=== PATIENT | male | born 1965 | race Caucasian/White ===

== ENCOUNTER 2018-09-21 04:37 | Inpatient (IN) | payer MEDICAID, MEDICARE, SELFPAY ==
--- NOTE | 2018-09-21 04:57 | C.PDOC ---
History Of Present Illness Patient presents with ruq pain, constipation and some nausea and vomiting. Pt states his last bm was 10 days ago. No f/c. Decreased po intake. Dull, aching cramping discomfort, occasionally radiating to the back. Time Seen by Provider: 09/21/18 04:56 Chief Complaint (Nursing): Abdominal Pain History Per: Patient History/Exam Limitations: no limitations Onset/Duration Of Symptoms: Days (10) Current Symptoms Are (Timing): Still Present Context: Other Severity: Moderate Pain Scale Rating Of: 5 Location Of Pain/Discomfort: RUQ Radiation Of Pain To:: Back Quality Of Discomfort: Dull, Aching, Cramping Associated Symptoms: Nausea, Vomiting. denies: Fever, Chills Exacerbating Factors: Food Alleviating Factors: None Last Bowel Movement: Days Ago Recent travel outside of the [place]: No Additional History Per: Patient Past Medical History Reviewed: Historical Data, Nursing Documentation, Vital Signs Vital Signs: Last Vital Signs Temp 97.5 F L 09/21/18 04:44 Pulse 102 H 09/21/18 04:44 Resp 20 09/21/18 04:44 BP 144/68 09/21/18 04:44 Pulse Ox 96 09/21/18 04:44 - Medical History PMH: HTN, Hypercholesterolemia Surgical History: CABG, Coronary Stent Family History: States: No Known Family Hx - Social History Hx Alcohol Use: No Hx Substance Use: No - Immunization History Hx Tetanus Toxoid Vaccination: No Hx Influenza Vaccination: No Hx Pneumococcal Vaccination: No Review Of Systems Constitutional: Negative for: Fever, Chills Cardiovascular: Negative for: Chest Pain Respiratory: Negative for: Shortness of Breath Gastrointestinal: Positive for: Nausea, Vomiting, Abdominal Pain Genitourinary: Negative for: Dysuria Musculoskeletal: Negative for: Back Pain Skin: Negative for: Rash Neurological: Negative for: Weakness Psych: Negative for: Anxiety Physical Exam - Physical Exam Appears: Non-toxic, No Acute Distress Skin: Warm, Dry Oral Mucosa: Moist Chest: Symmetrical Cardiovascular: Rhythm Regular Respiratory: No Rales, No Rhonchi, No Wheezing Gastrointestinal/Abdominal: Bowel Sounds (tympanic to percussion), Soft, Tenderness (ruq), Distention, No Guarding, No Rebound Back: No CVA Tenderness Extremity: Normal ROM Extremity: Bilateral: Atraumatic Pulses: Left Dorsalis Pedis: Normal, Right Dorsalis Pedis: Normal Neurological/Psych: Oriented x3 Gait: Steady ED Course And Treatment - Laboratory Results Result Diagrams: 09/21/18 06:24 ECG: Interpreted By Me, Viewed By Me ECG Rhythm: Sinus Rhythm (97), R BBB, Nonspecific Changes (lahb) O2 Sat by Pulse Oximetry: 96 Pulse Ox Interpretation: Normal Disposition Counseled Patient/Family Regarding: Studies Performed, Diagnosis - Disposition Disposition Time: 07:00 Condition: FAIR Forms: [employer] ([place]aguan) - Clinical Impression Clinical Impression: Abdominal pain Physician Patient Turnover Patient Signed Over To: Allison Tomas Handoff Comments: pending labs, re-eval and disposition
[2018-09-21] MEDS ORDERED: Sodium Chloride 0.9% 1,000 ML IV ONE ×2 (04:59→08:43)
[2018-09-21 06:08] LABS: URINE BILIRUBIN NEGATIVE (NEGATIVE); URINE BLOOD NEGATIVE (NEGATIVE); URINE CLARITY Clear (Clear); URINE COLOR Yellow (YELLOW); URINE GLUCOSE (UA) NORMAL (Normal); URINE HYALINE CAST 0-2 /lpf (0-2); URINE LEUKOCYTE ESTERASE NEG Leu/uL (Negative); URINE PROTEIN 1+ mg/dL (NEGATIVE); URINE UROBILINOGEN NORMAL mg/dL (0.2-1.0)
[2018-09-21 06:29] LABS: BASO % 0.2 % (0.0-2.0); EOS # 0.1 K/uL (0.0-0.7); EOS % 0.6 % (0.0-4.0); HEMOGLOBIN 13.4 g/dL (12.0-18.0); LYMPH # 0.9 K/uL (1.0-4.3); LYMPH % 5.6 % (20.0-40.0); MEAN CORPUSCULAR HEMOGLOBIN 30.5 pg (27.0-31.0); MEAN CORPUSCULAR HGB CONC 34.3 g/dL (33.0-37.0); MEAN PLATELET VOLUME 8.1 fL (7.2-11.7); MONO # 1.5 K/uL (0.0-0.8); MONO % 9.3 % (0.0-10.0); NEUT # 13.7 K/uL (1.8-7.0); NEUT % 84.3 % (50.0-75.0); NRBC % 0.1 % (0.0-2.0); PLATELET COUNT 412 K/uL (130-400); RBC 4.38 Mil/uL (4.40-5.90); RED CELL DISTRIBUTION WIDTH 12.7 % (11.5-14.5); WHITE BLOOD COUNT 16.2 K/uL (4.8-10.8)
[2018-09-21] MEDS ORDERED: metroNIDAZOLE IV 500 mg/100 ml 500 MG/100 ML BAG ONE ×2 (06:55→13:48)
[2018-09-21 06:58] LABS: INR 1.2; PROTHROMBIN TIME 13.4 SECONDS (9.7-12.2)
[2018-09-21] MEDS: metroNIDAZOLE IV 500 mg/100 ml 500 MG/100 ML BAG IVPB SCH ×3 (07:07→23:01)
[2018-09-21 07:55] LABS: LYMPHOCYTE 7 % (20-40); MONOCYTE 6 % (0-10); NEUTROPHIL 87 % (50-75); PLATELET ESTIMATE SLIGHTLY INCREASED (NORMAL); TOTAL CELLS COUNTED 100
[2018-09-21 07:56] LABS: LARGE PLATELETS PRESENT
[2018-09-21 07:58] LABS: ALB/GLOB RATIO 1.4 (1.0-2.1); ALBUMIN 4.1 g/dL (3.5-5.0); ALT/SGPT 41 U/L (21-72); AST/SGOT 33 U/L (17-59); BLOOD UREA NITROGEN 13 mg/dL (9-20); CALCIUM 8.9 mg/dl (8.6-10.4); GFR NON-AFRICAN AMERICAN > 60; LIPASE 23 U/L (23-300)
[2018-09-21] MEDS ORDERED: Sodium Chloride 0.9% 1,000 ML ONE (09:30)
--- NOTE | 2018-09-21 11:44 | CT ---
PROCEDURE: CT Abdomen and Pelvis without Oral or IV contrast. HISTORY: abd pain COMPARISON: None available TECHNIQUE: Contiguous axial images of the abdomen and pelvis. No oral or IV contrast administered. Coronal and Sagittal reformats generated and reviewed. Radiation dose: Total exam DLP = 427.42 mGy-cm. This CT exam was performed using one or more of the following dose reduction techniques: Automated exposure control, adjustment of the mA and/or kV according to patient size, and/or use of iterative reconstruction technique. FINDINGS: There is limited evaluation of the solid organs without the administration of IV contrast. LOWER THORAX: Right greater than left lower lobe dependent consolidation. No visible pleural effusion or pneumothorax. Dense coronary artery calcifications. Median sternotomy wires. Distal esophageal wall thickening/hiatal hernia. LIVER: Unremarkable. GALLBLADDER AND BILE DUCTS: Gallbladder distension. Gallbladder wall thickening. Adjacent inflammatory changes. PANCREAS: Unremarkable unenhanced appearance. SPLEEN: Unremarkable unenhanced appearance. ADRENALS: Unremarkable unenhanced appearance. KIDNEYS AND URETERS: No hydronephrosis or obstructing renal calculus. BLADDER: Under distended urinary bladder appears thick walled. REPRODUCTIVE: Unremarkable. APPENDIX: The appendix appears within normal limits of caliber. No secondary signs of acute appendicitis. BOWEL: The stomach is nondistended. Lack of oral contrast limits evaluation for bowel pathology. The bowel loops appear within normal limits of caliber without evidence of intestinal obstruction. PERITONEUM: No significant free fluid. No definite free air. LYMPH NODES: No bulky lymphadenopathy identified. VASCULATURE: Dense atherosclerotic calcifications of the aorta and branches. No aortic aneurysm. BONES: No acute osseous abnormality is detected. OTHER FINDINGS: None. IMPRESSION: Gallbladder distension, gallbladder wall thickening, and adjacent inflammatory changes. Correlate clinically for acute cholecystitis. Calcified gallstones are not identified. Urinary bladder appears thick walled, under distended. Recommend correlation with urinalysis. Distal esophageal wall thickening/small hiatal hernia. Additional findings as above.
[2018-09-21] MEDS ORDERED: Cefepime 1 GM in Sodium Chloride 0.9% 50 ML IVPB ONE (13:17)
[2018-09-21] MEDS ORDERED: Cefepime IV 1 gm in Dextrose 1 GM/50 ML BAG IVPB SCH (13:30)
--- NOTE | 2018-09-21 13:30 | CP.PCM.CON ---
History of Present Illness - History of Present Illness History of Present Illness: Surgery Consult Note for Dr. Spencer. 53 M w/ PMhx of cardiac bypass, RLE vascular stents, DM, HTN, HLD, presents to ED for RUQ abdominal pain with radiation to R shoulder for the past 11 days. Patient states he has been having this pain constantly since Sep 10. Patient admits to X4, green/yellow bilious vomiting this morning. He states he has been having vomiting every day since the . Patient admits to worsening pain in the chest with deep inspiration. Patient also admits to having no bowel movement; however, he is able to pass gas. Patient has only been eating steamed vegetables due to the pain. Patient denies headaches, vision changes, fevers, chills, lower extremity pain. Patient report she was at [facility] on the for the same pain; however, was D/c'ed with just pain medicine that has not helped. PMD: Dr. Corrigan PMHx: cardiac bypass, RLE vascular stents, DM, HTN, HLD Meds: See EMR PSHx: Cardiac bypass, RLE vascular stents Allergies: Shrimp SHx: Denies smoking, ETOH, drug use. Review of Systems - Review of Systems All systems: reviewed and no additional remarkable complaints except - Constitutional Constitutional: As Per HPI Past Patient History - Infectious Disease Hx of Infectious Diseases: None - Past Social History Smoking Status: Never Smoked - CARDIAC Hx Hypercholesterolemia: Yes Hx Hypertension: Yes - ENDOCRINE/METABOLIC Hx Endocrine Disorders: Yes Hx Diabetes Mellitus Type 1: Yes - PSYCHIATRIC Hx Substance Use: No - SURGICAL HISTORY Hx Coronary Artery Bypass Graft: Yes Hx Coronary Stent: Yes - ANESTHESIA Hx Anesthesia: Yes Hx Anesthesia Reactions: No Meds Allergies/Adverse Reactions: Allergies Allergy/AdvReac Type Severity Reaction Status Date / Time shrimp Allergy Verified 09/21/18 04:49 - Medications Medications: Current Medications Metronidazole (Flagyl) 500 mg in 100 mls @ 100 mls/hr IVPB STAT [facility]; Protocol Last Admin: 09/21/18 07:07 Dose: 100 mls/hr Physical Exam - Constitutional Appears: Non-toxic - Head Exam Head Exam: NORMAL INSPECTION - Eye Exam Eye Exam: Normal appearance, PERRL Pupil Exam: NORMAL ACCOMODATION - ENT Exam ENT Exam: Mucous Membranes Moist - Respiratory Exam Respiratory Exam: Clear to Auscultation Bilateral, NORMAL BREATHING PATTERN. absent: Rales, Rhonchi, Wheezes - Cardiovascular Exam Cardiovascular Exam: +S1, +S2, Systolic Murmur. absent: Gallop, JVD, Rubs - GI/Abdominal Exam GI & Abdominal Exam: Guarding, Normal Bowel Sounds, Soft. absent: Distended Additional comments: + arias sign tenderness on palpation RUQ - Extremities Exam Extremities exam: Positive for: normal inspection. Negative for: calf tenderness, pedal edema - Back Exam Back exam: absent: CVA tenderness (L), CVA tenderness (R) - Neurological Exam Neurological exam: Alert, Oriented x3 - Psychiatric Exam Psychiatric exam: Normal Affect, Normal Mood - Skin Skin Exam: Dry, Normal Color, Warm Results - Vital Signs Recent Vital Signs: Last Vital Signs Temp 98.9 F 09/21/18 12:08 Pulse 100 H 09/21/18 12:08 Resp 18 09/21/18 12:08 BP 128/72 09/21/18 12:08 Pulse Ox 98 09/21/18 12:08 - Labs Result Diagrams: 09/21/18 06:24 09/21/18 06:21 Labs: Laboratory Results - last 24 hr 09/21/18 09/21/18 09/21/18 05:54 06:21 06:21 WBC RBC Hgb Hct MCV MCH MCHC RDW Plt Count MPV Neut % (Auto) Lymph % (Auto) [place] % (Auto) Eos % (Auto) Baso % (Auto) Neut # (Auto) Lymph # (Auto) [place] # (Auto) Eos # (Auto) Baso # (Auto) Neutrophils % (Manual) Lymphocytes % (Manual) Monocytes % (Manual) Platelet Estimate Large Platelets RBC Morphology PT 13.4 H INR 1.2 APTT 32 Sodium 130 L Potassium 4.2 Chloride 96 L Carbon Dioxide 21 L Anion Gap 17 BUN 13 Creatinine 0.8 Est GFR ( Amer) > 60 Est GFR (Non-Af Amer) > 60 Random Glucose 173 H D Calcium 8.9 Total Bilirubin 0.9 AST 33 ALT 41 Alkaline Phosphatase 132 H Total Protein 7.0 Albumin 4.1 Globulin 2.9 Albumin/Globulin Ratio 1.4 Lipase 23 Urine Color Yellow Urine Clarity Clear Urine pH 5.0 Ur Specific [place] 1.012 Urine Protein 1+ H Urine Glucose (UA) Normal Urine Ketones 1+ H Urine Blood Negative Urine Nitrate Negative Urine Bilirubin Negative Urine Urobilinogen Normal Ur Leukocyte Esterase Neg Urine WBC (Auto) 1 Hyaline Casts 0-2 09/21/18 06:24 WBC 16.2 H D RBC 4.38 L Hgb 13.4 Hct 39.0 MCV 89.0 MCH 30.5 MCHC 34.3 RDW 12.7 Plt Count 412 H D MPV 8.1 Neut % (Auto) 84.3 H Lymph % (Auto) 5.6 L Swisher % (Auto) 9.3 Eos % (Auto) 0.6 Baso % (Auto) 0.2 Neut # (Auto) 13.7 H Lymph # (Auto) 0.9 L Swisher # (Auto) 1.5 H Eos # (Auto) 0.1 Baso # (Auto) 0.0 Neutrophils % (Manual) 87 H Lymphocytes % (Manual) 7 L Monocytes % (Manual) 6 Platelet Estimate Slightly increased H Large Platelets Present RBC Morphology Normal PT INR APTT Sodium Potassium Chloride Carbon Dioxide Anion Gap BUN Creatinine Est GFR ( Amer) Est GFR (Non-Af Amer) Random Glucose Calcium Total Bilirubin AST ALT Alkaline Phosphatase Total Protein Albumin Globulin Albumin/Globulin Ratio Lipase Urine Color Urine Clarity Urine pH Ur Specific [place] Urine Protein Urine Glucose (UA) Urine Ketones Urine Blood Urine Nitrate Urine Bilirubin Urine Urobilinogen Ur Leukocyte Esterase Urine WBC (Auto) Hyaline Casts Assessment & Plan - Assessment and Plan (Free Text) Assessment: 53 M w/ 11 day RUQ abd pain, likely acute cholecystitis: Plan: - F/u U/S - medical optimization - Cardic risk stratification - NPO - IV abx - IV fluids - pain management - antiemetic - plan for possible OR Monday following medical clearance Further recs per Dr. Johanna Tony, PGY1 Surgery
[2018-09-21] MEDS: Cefepime IV 2 gm in Dextrose 2 GM/100 ML BAG IVPB SCH ×2 (13:55→13:57)
[2018-09-21] MEDS: Dextrose 5%/0.45% NS 1,000 ML IV SCH ×2 (15:15→23:04)
--- NOTE | 2018-09-21 17:39 | US ---
Date of service: 09/21/2018 HISTORY: abd pain COMPARISON: Comparison is made to the previous CT dated 09/21/2018 TECHNIQUE: Sonographic evaluation of the abdomen. FINDINGS: LIVER: Measures 17.2 cm. Heterogeneous increased echogenicity of the liver parenchyma. No mass. No intrahepatic bile duct dilatation. GALLBLADDER: No definite evidence of gallstones noted. There is diffuse gallbladder wall thickening. There is pericholecystic fluid. COMMON BILE DUCT: Measures 4.1 mm. No stones. No dilatation. PANCREAS: Unremarkable as visualized. No mass. No ductal dilatation. RIGHT KIDNEY: Measures 11.3 x 5.9 x 6.3cm. Normal echogenicity. No calculus, mass, or hydronephrosis. LEFT KIDNEY: Measures 12 x 5.4 x 5.5cm. Normal echogenicity. No calculus, mass, or hydronephrosis. SPLEEN: Normal in size and contour. No mass. AORTA: No aneurysmal dilatation. IVC: Unremarkable. OTHER FINDINGS: None. IMPRESSION: No ultrasound evidence of cholelithiasis. Diffuse gallbladder wall thickening and pericholecystic inflammatory changes and trace of fluid noted. The possibility of acute cholecystitis should be considered. Hepatomegaly with findings suggestive of moderate hepatic steatosis. No ultrasound evidence of biliary ductal dilatation.
[2018-09-21] MEDS: HYDROmorphone 0.5 mg/0.5 ml ISec IVP PRN (22:00)
[2018-09-21] MEDS: (Lantus) Insulin Glargine, Recombinant SC SCH (22:12)
[2018-09-22] MEDS: (Novolog) Insulin Aspart, Recombinant 100 u/ml 10 ml vial SC SCH ×4 (00:44→17:41)
--- NOTE | 2018-09-22 00:55 | CP.PCM.CON ---
History of Present Illness - History of Present Illness History of Present Illness: CC: Pre op Clearence HPI: 53 year old man with chronic medical problems 1. HTN chronic and stable on metoprolol and imdur 2. PVD chronic and stable on pletal 3. DM on insuline 4. ASHD s/p CABG Past Patient History - Infectious Disease Hx of Infectious Diseases: None - Past Medical History & Family History Past Medical History?: Yes - Past Social History Smoking Status: Never Smoked - CARDIAC Hx Hypercholesterolemia: Yes Hx Hypertension: Yes - ENDOCRINE/METABOLIC Hx Endocrine Disorders: Yes Hx Diabetes Mellitus Type 1: Yes - MUSCULOSKELETAL/RHEUMATOLOGICAL Hx Falls: No - PSYCHIATRIC Hx Substance Use: No - SURGICAL HISTORY Hx Coronary Artery Bypass Graft: Yes Hx Coronary Stent: Yes - ANESTHESIA Hx Anesthesia: Yes Hx Anesthesia Reactions: No Meds Allergies/Adverse Reactions: Allergies Allergy/AdvReac Type Severity Reaction Status Date / Time shrimp Allergy Verified 09/21/18 04:49 - Medications Medications: Current Medications Cilostazol (Pletal) 100 mg PO BID [facility] Gabapentin (Neurontin) 300 mg PO TID [facility] Home Med (Patient's Own Medication) 1 tab PO DAILY [facility] Home Med (Patient's Own Medication) 1 tab PO DAILY [facility] Hydromorphone HCl (Dilaudid) 0.5 mg IVP Q4H PRN PRN Reason: Pain, severe (8-10) Last Admin: 09/21/18 22:00 Dose: 0.5 mg Metronidazole (Flagyl) 500 mg in 100 mls @ 100 mls/hr IVPB STAT [facility]; Protocol Last Admin: 09/21/18 07:07 Dose: 100 mls/hr Cefepime HCl (Maxipime Iv 2 Gm Premix) 2 gm in 100 mls @ 200 mls/hr IVPB Q12H [facility]; Protocol Stop: 09/26/18 13:31 Last Admin: 09/21/18 13:57 Dose: 200 mls/hr Metronidazole (Flagyl) 500 mg in 100 mls @ 100 mls/hr IVPB Q8H [facility]; Protocol Last Admin: 09/21/18 23:01 Dose: 100 mls/hr Dextrose/Sodium Chloride (Dextrose 5%/0.45% Ns 1000 Ml) 1,000 mls @ 115 mls/hr IV .Q8H42M [facility] Last Admin: 09/21/18 23:04 Dose: Not Given Insulin Aspart (Novolog) 0 unit SC Q6 [facility]; Protocol Last Admin: 09/22/18 00:44 Dose: Not Given Insulin Glargine (Lantus) 40 unit SC [facility] Last Admin: 09/21/18 22:12 Dose: Not Given Isosorbide Mononitrate (Imdur) 30 mg PO DAILY [facility] Metoprolol Tartrate (Lopressor) 50 mg PO DAILY [facility] Ondansetron HCl (Zofran Inj) 4 mg IVP Q4H PRN PRN Reason: Nausea/Vomiting Rosuvastatin Calcium (Crestor) 40 mg PO [facility] Last Admin: 09/21/18 22:12 Dose: Not Given Results - Vital Signs Recent Vital Signs: Last Vital Signs Temp 98.8 F 09/21/18 16:00 Pulse 98 H 09/21/18 16:00 Resp 20 09/21/18 16:00 BP 125/76 09/21/18 16:00 Pulse Ox 97 09/21/18 16:00 - Labs Result Diagrams: 09/21/18 06:24 09/21/18 06:21 Labs: Laboratory Results - last 24 hr 09/21/18 09/21/18 09/21/18 05:54 06:21 06:21 WBC RBC Hgb Hct MCV MCH MCHC RDW Plt Count MPV Neut % (Auto) Lymph % (Auto) [place] % (Auto) Eos % (Auto) Baso % (Auto) Neut # (Auto) Lymph # (Auto) Millard # (Auto) Eos # (Auto) Baso # (Auto) Neutrophils % (Manual) Lymphocytes % (Manual) Monocytes % (Manual) Platelet Estimate Large Platelets RBC Morphology PT 13.4 H INR 1.2 APTT 32 Sodium 130 L Potassium 4.2 Chloride 96 L Carbon Dioxide 21 L Anion Gap 17 BUN 13 Creatinine 0.8 Est GFR ( Amer) > 60 Est GFR (Non-Af Amer) > 60 POC Glucose (mg/dL) Random Glucose 173 H D Calcium 8.9 Total Bilirubin 0.9 AST 33 ALT 41 Alkaline Phosphatase 132 H Total Protein 7.0 Albumin 4.1 Globulin 2.9 Albumin/Globulin Ratio 1.4 Lipase 23 Urine Color Yellow Urine Clarity Clear Urine pH 5.0 Ur Specific [place] 1.012 Urine Protein 1+ H Urine Glucose (UA) Normal Urine Ketones 1+ H Urine Blood Negative Urine Nitrate Negative Urine Bilirubin Negative Urine Urobilinogen Normal Ur Leukocyte Esterase Neg Urine WBC (Auto) 1 Hyaline Casts 0-2 09/21/18 09/21/18 06:24 20:59 WBC 16.2 H D RBC 4.38 L Hgb 13.4 Hct 39.0 MCV 89.0 MCH 30.5 MCHC 34.3 RDW 12.7 Plt Count 412 H D MPV 8.1 Neut % (Auto) 84.3 H Lymph % (Auto) 5.6 L Millard % (Auto) 9.3 Eos % (Auto) 0.6 Baso % (Auto) 0.2 Neut # (Auto) 13.7 H Lymph # (Auto) 0.9 L Millard # (Auto) 1.5 H Eos # (Auto) 0.1 Baso # (Auto) 0.0 Neutrophils % (Manual) 87 H Lymphocytes % (Manual) 7 L Monocytes % (Manual) 6 Platelet Estimate Slightly increased H Large Platelets Present RBC Morphology Normal PT INR APTT Sodium Potassium Chloride Carbon Dioxide Anion Gap BUN Creatinine Est GFR ( Amer) Est GFR (Non-Af Amer) POC Glucose (mg/dL) 235 H Random Glucose Calcium Total Bilirubin AST ALT Alkaline Phosphatase Total Protein Albumin Globulin Albumin/Globulin Ratio Lipase Urine Color Urine Clarity Urine pH Ur Specific [place] Urine Protein Urine Glucose (UA) Urine Ketones Urine Blood Urine Nitrate Urine Bilirubin Urine Urobilinogen Ur Leukocyte Esterase Urine WBC (Auto) Hyaline Casts - EKG Data EKG Interpreted by: Myself EKG shows normal: Sinus rhythm Rate: Normal - Imaging and Cardiology CT scan - abdomen Status: Image reviewed by me, Report reviewed by me (Acute cholecystitis) Assessment & Plan - Assessment and Plan (Free Text) Assessment: 53 year old man with acute cholecystitis abx, NPO Preop Clearance - patient is acceptable risk for this urgent procedure no further cardiac work up is required. ASHD high dose statin, asprin Angina chronic and stable on imdur s/p CABG; reports he had normal nuclear stress test last year. DM is chronic and stable on insulin HTN is chronic and stable on metoprolol PVD is chronic has 2 block claudication on pletal - Date & Time Date: 09/22/18 Time: 10:52
[2018-09-22] MEDS: Cefepime IV 2 gm in Dextrose 2 GM/100 ML BAG IVPB SCH ×2 (01:10→13:23)
[2018-09-22] MEDS: Dextrose 5%/0.45% NS 1,000 ML IV SCH ×3 (05:56→18:57)
[2018-09-22] MEDS: metroNIDAZOLE IV 500 mg/100 ml 500 MG/100 ML BAG IVPB SCH ×3 (05:59→22:03)
[2018-09-22] MEDS: Cilostazol 100 mg Tab UD PO SCH ×2 (09:56→17:40)
[2018-09-22] MEDS ORDERED: Patient's Own Medication - Tablet/Capusle PO SCH (10:00)
--- NOTE | 2018-09-22 12:59 | CP.PCM.HP ---
History of Present Illness - History of Present Illness History of Present Illness: pt came in to emergency room for pain abd recurent for 10 days geting worse and vomiting fever Present on Admission - Present on Admission Any Indicators Present on Admission: No Review of Systems - Review of Systems Systems not reviewed;Unavailable: Acuity of Condition - Constitutional Constitutional: Fatigue, Fever - EENT Eyes: As Per HPI Ears: As Per HPI Nose/Mouth/Throat: As Per HPI - Cardiovascular Additional comments: s/p valve replacement cad - Respiratory Respiratory: As Per HPI - Gastrointestinal Gastrointestinal: Abdominal Pain, Change in Bowel Habits, Constipation, Vomiting - Genitourinary Genitourinary: Urinary Frequency - Reproductive: Male Reproductive:Male: As Per HPI - Musculoskeletal Musculoskeletal: As Per HPI - Integumentary Integumentary: As Per HPI - Neurological Neurological: As Per HPI - Psychiatric Psychiatric: As Per HPI - Endocrine Endocrine: As Per HPI, Fatigue, Polyuria Additional Comments: dm - Hematologic/Lymphatic Hematologic: As Per HPI Past Patient History - Infectious Disease Hx of Infectious Diseases: None - Past Medical History & Family History Past Medical History?: Yes - Past Social History Smoking Status: Never Smoked - CARDIAC Hx Hypercholesterolemia: Yes Hx Hypertension: Yes - ENDOCRINE/METABOLIC Hx Endocrine Disorders: Yes Hx Diabetes Mellitus Type 1: Yes - MUSCULOSKELETAL/RHEUMATOLOGICAL Hx Falls: No - PSYCHIATRIC Hx Substance Use: No - SURGICAL HISTORY Hx Coronary Artery Bypass Graft: Yes Hx Coronary Stent: Yes - ANESTHESIA Hx Anesthesia: Yes Hx Anesthesia Reactions: No Meds Allergies/Adverse Reactions: Allergies Allergy/AdvReac Type Severity Reaction Status Date / Time shrimp Allergy Verified 09/21/18 04:49 Physical Exam - Constitutional Appears: In Acute Distress - Head Exam Head Exam: ATRAUMATIC - Eye Exam Eye Exam: Normal appearance - ENT Exam ENT Exam: Mucous Membranes Moist - Neck Exam Neck exam: Positive for: Normal Inspection - Respiratory Exam Respiratory Exam: NORMAL BREATHING PATTERN - Cardiovascular Exam Cardiovascular Exam: REGULAR RHYTHM, +S1, +S2, +S4, Systolic Murmur - GI/Abdominal Exam GI & Abdominal Exam: Rebound, Tenderness Additional comments: erness - Rectal Exam Rectal Exam: Deferred - Exam Exam: NORMAL INSPECTION - Extremities Exam Extremities exam: Positive for: normal inspection - Back Exam Back exam: NORMAL INSPECTION - Neurological Exam Neurological exam: Alert, Normal Gait, Oriented x3 - Psychiatric Exam Psychiatric exam: Normal Affect - Skin Skin Exam: Normal Color Results - Vital Signs Recent Vital Signs: Last Vital Signs Temp 99.0 F 09/22/18 07:28 Pulse 96 H 09/22/18 07:28 Resp 20 09/22/18 07:28 BP 118/71 09/22/18 07:28 Pulse Ox 97 09/22/18 07:28 - Labs Result Diagrams: 09/21/18 06:24 09/21/18 06:21 Labs: Laboratory Results - last 24 hr 09/21/18 09/22/18 09/22/18 20:59 06:07 07:06 POC Glucose (mg/dL) 235 H 291 H 281 H 09/22/18 11:19 POC Glucose (mg/dL) 310 H Assessment & Plan - Assessment and Plan (Free Text) Assessment: acute abd pain ac cholycystitis s/p valve replacement cad dm Plan: as ordered - Date & Time Date: 09/22/18 Time: 13:02
[2018-09-22] MEDS: HYDROmorphone 0.5 mg/0.5 ml ISec IVP PRN ×2 (15:00→18:58)
--- NOTE | 2018-09-22 16:55 | RAD ---
Date of service: 09/22/2018 HISTORY: Preop [facility] COMPARISON: Comparison chest 05/27/2013. TECHNIQUE: Chest PA and lateral FINDINGS: LUNGS: Poor inspiration with low lung volumes, crowded bronchovascular markings and mild bibasilar atelectasis left greater than right PLEURA: Questionable mild pleural thickening however tiny right-sided effusion not excluded. No pneumothorax apparent. CARDIOVASCULAR: Mild aortic atherosclerotic calcification present. Heart size mildly enlarged. Interval sternotomy. OSSEOUS STRUCTURES: No significant abnormalities. VISUALIZED UPPER ABDOMEN: Normal. OTHER FINDINGS: None. IMPRESSION: Poor inspiration with low lung volumes, crowded bronchovascular markings and mild bibasilar atelectasis left greater than right
--- NOTE | 2018-09-22 17:40 | CP.PCM.PN ---
Subjective - Date & Time of Evaluation Date of Evaluation: 09/22/18 Time of Evaluation: 07:00 - Subjective Subjective: Surgery: Dr. Spencer Pt seen and examined. No acute overnight events. Pt continues to have RUQ pain radiating to the back. Denies nausea/vomiting, fevers/chills. Objective - Vital Signs/Intake and Output Vital Signs (last 24 hours): Temp Pulse Resp BP Pulse Ox 99.5 F 102 H 20 128/67 95 09/22/18 16:30 09/22/18 16:30 09/22/18 16:30 09/22/18 16:30 09/22/18 16:30 Intake and Output: 09/22/18 09/22/18 06:59 18:59 Intake Total 1920 1250 Output Total 800 Balance 1120 1250 - Medications Medications: Current Medications Cilostazol (Pletal) 100 mg PO BID [facility] Last Admin: 09/22/18 09:56 Dose: 100 mg Gabapentin (Neurontin) 300 mg PO TID [facility] Last Admin: 09/22/18 13:23 Dose: 300 mg Home Med (Patient's Own Medication) 1 tab PO DAILY [facility] Home Med (Patient's Own Medication) 1 tab PO DAILY [facility] Hydromorphone HCl (Dilaudid) 0.5 mg IVP Q4H PRN PRN Reason: Pain, severe (8-10) Last Admin: 09/22/18 15:00 Dose: 0.5 mg Metronidazole (Flagyl) 500 mg in 100 mls @ 100 mls/hr IVPB STAT [facility]; Protocol Last Admin: 09/21/18 07:07 Dose: 100 mls/hr Cefepime HCl (Maxipime Iv 2 Gm Premix) 2 gm in 100 mls @ 200 mls/hr IVPB Q12H [facility]; Protocol Stop: 09/26/18 13:31 Last Admin: 09/22/18 13:23 Dose: 200 mls/hr Metronidazole (Flagyl) 500 mg in 100 mls @ 100 mls/hr IVPB Q8H [facility]; Protocol Last Admin: 09/22/18 14:37 Dose: 100 mls/hr Dextrose/Sodium Chloride (Dextrose 5%/0.45% Ns 1000 Ml) 1,000 mls @ 115 mls/hr IV .Q8H42M [facility] Last Admin: 09/22/18 09:49 Dose: Not Given Insulin Aspart (Novolog) 0 unit SC Q6 [facility]; Protocol Last Admin: 09/22/18 12:10 Dose: 6 units Insulin Glargine (Lantus) [address] [facility] Last Admin: 09/21/18 22:12 Dose: Not Given Isosorbide Mononitrate (Imdur Er) 30 mg PO DAILY [facility] Last Admin: 09/22/18 10:33 Dose: 30 mg Metoprolol Tartrate (Lopressor) 50 mg PO DAILY [facility] Last Admin: 09/22/18 09:54 Dose: 50 mg Ondansetron HCl (Zofran Inj) 4 mg IVP Q4H PRN PRN Reason: Nausea/Vomiting Rosuvastatin Calcium (Crestor) [address] [facility] Last Admin: 09/21/18 22:12 Dose: Not Given - Labs Labs: 09/21/18 06:24 09/21/18 06:21 PT 13.4 SECONDS (9.7-12.2) H 09/21/18 06:21 INR 1.2 09/21/18 06:21 APTT 32 SECONDS (21-34) 09/21/18 06:21 - Constitutional Appears: Well, No Acute Distress - Head Exam Head Exam: ATRAUMATIC, NORMOCEPHALIC - Eye Exam Eye Exam: Normal appearance - ENT Exam ENT Exam: Mucous Membranes Moist - Respiratory Exam Respiratory Exam: NORMAL BREATHING PATTERN - Cardiovascular Exam Cardiovascular Exam: Tachycardia - GI/Abdominal Exam GI & Abdominal Exam: Soft. absent: Distended, Tenderness, Rebound - Neurological Exam Neurological Exam: Alert, Awake, Oriented x3 - Skin Skin Exam: Dry, Warm Assessment and Plan - Assessment and Plan (Free Text) Assessment: 53M with cholecystitis Plan: - OR mon for lap huma - clear liquids in the meantime - hold AC prior to OR - d/w Dr. Johanna Sandoval
[2018-09-22] MEDS: (Lantus) Insulin Glargine, Recombinant SC SCH (21:44)
[2018-09-23] MEDS: HYDROmorphone 0.5 mg/0.5 ml ISec IVP PRN ×4 (00:15→18:02)
[2018-09-23] MEDS: (Novolog) Insulin Aspart, Recombinant 100 u/ml 10 ml vial SC SCH ×4 (00:16→17:26)
[2018-09-23] MEDS: Dextrose 5%/0.45% NS 1,000 ML IV SCH ×3 (01:11→09:37)
[2018-09-23] MEDS: Cefepime IV 2 gm in Dextrose 2 GM/100 ML BAG IVPB SCH ×2 (01:11→12:41)
[2018-09-23] MEDS: metroNIDAZOLE IV 500 mg/100 ml 500 MG/100 ML BAG IVPB SCH ×4 (06:03→22:03)
[2018-09-23 08:42] LABS: BASO # 0.1 K/uL (0.0-0.2); BASO % 0.5 % (0.0-2.0); EOS # 0.1 K/uL (0.0-0.7); EOS % 0.7 % (0.0-4.0); LYMPH # 0.9 K/uL (1.0-4.3); LYMPH % 6.2 % (20.0-40.0); MEAN CELL VOLUME 87.5 fL (80.0-94.0); MEAN CORPUSCULAR HEMOGLOBIN 30.1 pg (27.0-31.0); MEAN CORPUSCULAR HGB CONC 34.4 g/dL (33.0-37.0); MEAN PLATELET VOLUME 7.5 fL (7.2-11.7); MONO # 1.6 K/uL (0.0-0.8); MONO % 11.3 % (0.0-10.0); NEUT # 11.4 K/uL (1.8-7.0); NEUT % 81.3 % (50.0-75.0); PLATELET COUNT 455 K/uL (130-400); RBC 3.76 Mil/uL (4.40-5.90); RED CELL DISTRIBUTION WIDTH 12.2 % (11.5-14.5); WHITE BLOOD COUNT 14.1 K/uL (4.8-10.8)
--- NOTE | 2018-09-23 08:45 | CP.PCM.PN ---
Subjective - Date & Time of Evaluation Date of Evaluation: 09/23/18 Time of Evaluation: 08:42 - Subjective Subjective: Surgery: Dr. Spencer Pt seen and examined. No acute overnight events. States he continues to have RUQ pain radiating to his back but denies nausea/vomiting. Admits to tolerating CLD. Denies fevers/chills. Objective - Vital Signs/Intake and Output Vital Signs (last 24 hours): Temp Pulse Resp BP Pulse Ox 99.5 F 94 H 20 120/70 94 L 09/22/18 16:30 09/23/18 00:00 09/23/18 00:00 09/23/18 00:00 09/23/18 00:00 - Medications Medications: Current Medications Cilostazol (Pletal) 100 mg PO BID [facility] Last Admin: 09/22/18 17:40 Dose: 100 mg Gabapentin (Neurontin) 300 mg PO TID [facility] Last Admin: 09/22/18 17:39 Dose: 300 mg Home Med (Patient's Own Medication) 1 tab PO DAILY [facility] Home Med (Patient's Own Medication) 1 tab PO DAILY [facility] Hydromorphone HCl (Dilaudid) 0.5 mg IVP Q4H PRN PRN Reason: Pain, severe (8-10) Last Admin: 09/23/18 05:49 Dose: 0.5 mg Metronidazole (Flagyl) 500 mg in 100 mls @ 100 mls/hr IVPB STAT [facility]; Protocol Last Admin: 09/21/18 07:07 Dose: 100 mls/hr Cefepime HCl (Maxipime Iv 2 Gm Premix) 2 gm in 100 mls @ 200 mls/hr IVPB Q12H [facility]; Protocol Stop: 09/26/18 13:31 Last Admin: 09/23/18 01:11 Dose: 200 mls/hr Metronidazole (Flagyl) 500 mg in 100 mls @ 100 mls/hr IVPB Q8H [facility]; Protocol Last Admin: 09/23/18 06:05 Dose: 100 mls/hr Dextrose/Sodium Chloride (Dextrose 5%/0.45% Ns 1000 Ml) 1,000 mls @ 115 mls/hr IV .Q8H42M [facility] Last Admin: 09/23/18 05:48 Dose: 115 mls/hr Insulin Aspart (Novolog) 0 unit SC Q6 [facility]; Protocol Last Admin: 09/23/18 05:35 Dose: 6 units Insulin Glargine (Lantus) 40 unit SC HS [facility] Last Admin: 09/22/18 21:44 Dose: 40 units Isosorbide Mononitrate (Imdur Er) 30 mg PO DAILY [facility] Last Admin: 09/22/18 10:33 Dose: 30 mg Metoprolol Tartrate (Lopressor) 50 mg PO DAILY [facility] Last Admin: 09/22/18 09:54 Dose: 50 mg Ondansetron HCl (Zofran Inj) 4 mg IVP Q4H PRN PRN Reason: Nausea/Vomiting Last Admin: 09/23/18 00:19 Dose: 4 mg Rosuvastatin Calcium (Crestor) 40 mg PO HS [facility] Last Admin: 09/22/18 21:43 Dose: 40 mg - Labs Labs: 09/21/18 06:24 09/21/18 06:21 PT 13.4 SECONDS (9.7-12.2) H 09/21/18 06:21 INR 1.2 09/21/18 06:21 APTT 32 SECONDS (21-34) 09/21/18 06:21 - Constitutional Appears: Well, No Acute Distress - Head Exam Head Exam: ATRAUMATIC, NORMOCEPHALIC - Eye Exam Eye Exam: Normal appearance - ENT Exam ENT Exam: Mucous Membranes Moist - Respiratory Exam Respiratory Exam: NORMAL BREATHING PATTERN - Cardiovascular Exam Cardiovascular Exam: RRR - GI/Abdominal Exam GI & Abdominal Exam: Soft, Tenderness (RUQ). absent: Distended, Guarding - Extremities Exam Extremities Exam: absent: Tenderness - Neurological Exam Neurological Exam: Alert, Awake, Oriented x3 - Skin Skin Exam: Dry, Warm Assessment and Plan - Assessment and Plan (Free Text) Assessment: 53M with cholecystitis Plan: - OR tomorrow for lap huma - cont ABX - d/w Dr. Johanna Sandoval
[2018-09-23 08:49] LABS: HEMOGLOBIN 11.3 g/dL (12.0-18.0)
[2018-09-23 08:54] LABS: BLOOD UREA NITROGEN 6 mg/dL (9-20); CALCIUM 8.1 mg/dl (8.6-10.4); GFR NON-AFRICAN AMERICAN > 60
[2018-09-23] MEDS: Cilostazol 100 mg Tab UD PO SCH (10:08)
--- NOTE | 2018-09-23 11:29 | CP.PCM.PN ---
Subjective - Date & Time of Evaluation Date of Evaluation: 09/23/18 Time of Evaluation: 11:27 - Subjective Subjective: pt still in pain nauseated dosnot wanti any po med upset his stomach Objective - Vital Signs/Intake and Output Vital Signs (last 24 hours): Temp Pulse Resp BP Pulse Ox 98.9 F 88 20 123/67 95 09/23/18 08:42 09/23/18 08:42 09/23/18 08:42 09/23/18 08:42 09/23/18 08:42 - Medications Medications: Current Medications Cilostazol (Pletal) 100 mg PO BID [facility] Last Admin: 09/23/18 10:08 Dose: Not Given Gabapentin (Neurontin) 300 mg PO TID [facility] Last Admin: 09/23/18 10:06 Dose: Not Given Home Med (Patient's Own Medication) 1 tab PO DAILY [facility] Home Med (Patient's Own Medication) 1 tab PO DAILY [facility] Hydromorphone HCl (Dilaudid) 0.5 mg IVP Q4H PRN PRN Reason: Pain, severe (8-10) Last Admin: 09/23/18 05:49 Dose: 0.5 mg Metronidazole (Flagyl) 500 mg in 100 mls @ 100 mls/hr IVPB STAT [facility]; Protocol Last Admin: 09/21/18 07:07 Dose: 100 mls/hr Cefepime HCl (Maxipime Iv 2 Gm Premix) 2 gm in 100 mls @ 200 mls/hr IVPB Q12H [facility]; Protocol Stop: 09/26/18 13:31 Last Admin: 09/23/18 01:11 Dose: 200 mls/hr Metronidazole (Flagyl) 500 mg in 100 mls @ 100 mls/hr IVPB Q8H [facility]; Protocol Last Admin: 09/23/18 06:05 Dose: 100 mls/hr Dextrose/Sodium Chloride (Dextrose 5%/0.45% Ns 1000 Ml) 1,000 mls @ 115 mls/hr IV .Q8H42M [facility] Last Admin: 09/23/18 09:37 Dose: Not Given Insulin Aspart (Novolog) 0 unit SC Q6 [facility]; Protocol Last Admin: 09/23/18 05:35 Dose: 6 units Insulin Glargine (Lantus) 40 unit SC HS [facility] Last Admin: 09/22/18 21:44 Dose: 40 units Metoprolol Tartrate (Lopressor) 50 mg PO DAILY [facility] Last Admin: 09/23/18 10:06 Dose: Not Given Nitroglycerin (Nitro-Dur 0.1 Mg/Hr Patch) 1 patch TD DAILY [facility] Ondansetron HCl (Zofran Inj) 4 mg IVP Q4H PRN PRN Reason: Nausea/Vomiting Last Admin: 09/23/18 00:19 Dose: 4 mg Rosuvastatin Calcium (Crestor) 40 mg PO HS [facility] Last Admin: 09/22/18 21:43 Dose: 40 mg - Labs Labs: 09/23/18 08:10 09/23/18 08:10 PT 13.4 SECONDS (9.7-12.2) H 09/21/18 06:21 INR 1.2 09/21/18 06:21 APTT 32 SECONDS (21-34) 09/21/18 06:21 - Constitutional Appears: Non-toxic - ENT Exam ENT Exam: Mucous Membranes Moist - Neck Exam Neck Exam: Full ROM - Respiratory Exam Respiratory Exam: Chest Wall Tenderness - Cardiovascular Exam Cardiovascular Exam: REGULAR RHYTHM - GI/Abdominal Exam GI & Abdominal Exam: Tenderness - Extremities Exam Extremities Exam: Full ROM - Back Exam Back Exam: vertebral tenderness - Neurological Exam Neurological Exam: Awake, Oriented x3 - Psychiatric Exam Psychiatric exam: Normal Affect - Skin Skin Exam: Pallor Assessment and Plan - Assessment and Plan (Free Text) Assessment: ac cholysystitis dm aneamia Plan: cont as per orders surgery in am
[2018-09-23 11:30] LABS: LYMPHOCYTE 6 % (20-40); MONOCYTE 11 % (0-10); NEUTROPHIL 83 % (50-75); PLATELET ESTIMATE INCREASED (NORMAL); TOTAL CELLS COUNTED 100
[2018-09-23 11:34] LABS: ANISOCYTOSIS SLIGHT; HYPOCHROMIC SLIGHT; POLYCHROMIC SLIGHT; TOXIC GRANULATION PRESENT
[2018-09-23 11:35] LABS: LARGE PLATELETS PRESENT
[2018-09-23] MEDS: Sodium Chloride 0.9% 1,000 ML IV SCH (11:53)
[2018-09-23] MEDS: Nitroglycerin 0.1 mg/hr Top Patch TD SCH (11:53)
[2018-09-23] MEDS: (Lantus) Insulin Glargine, Recombinant SC SCH (21:38)
[2018-09-24] MEDS: (Novolog) Insulin Aspart, Recombinant 100 u/ml 10 ml vial SC SCH ×4 (00:34→18:32)
[2018-09-24] MEDS: Cefepime IV 2 gm in Dextrose 2 GM/100 ML BAG IVPB SCH ×2 (00:38→13:47)
[2018-09-24] MEDS: HYDROmorphone 0.5 mg/0.5 ml ISec IVP PRN ×4 (00:51→15:47)
[2018-09-24] MEDS: metroNIDAZOLE IV 500 mg/100 ml 500 MG/100 ML BAG IVPB SCH ×2 (06:01→14:17)
[2018-09-24 07:38] LABS: BASO # 0.1 K/uL (0.0-0.2); BASO % 0.7 % (0.0-2.0); EOS # 0.2 K/uL (0.0-0.7); EOS % 1.7 % (0.0-4.0); HEMOGLOBIN 12.2 g/dL (12.0-18.0); LYMPH # 1.1 K/uL (1.0-4.3); LYMPH % 9.9 % (20.0-40.0); MEAN CELL VOLUME 88.1 fL (80.0-94.0); MEAN CORPUSCULAR HEMOGLOBIN 30.8 pg (27.0-31.0); MEAN CORPUSCULAR HGB CONC 34.9 g/dL (33.0-37.0); MEAN PLATELET VOLUME 7.3 fL (7.2-11.7); MONO # 1.3 K/uL (0.0-0.8); MONO % 10.7 % (0.0-10.0); PLATELET COUNT 497 K/uL (130-400); RBC 3.97 Mil/uL (4.40-5.90); RED CELL DISTRIBUTION WIDTH 12.2 % (11.5-14.5); WHITE BLOOD COUNT 11.7 K/uL (4.8-10.8)
[2018-09-24 07:41] LABS: ALB/GLOB RATIO 1.1 (1.0-2.1); ALBUMIN 3.3 g/dL (3.5-5.0); ALT/SGPT 41 U/L (21-72); AST/SGOT 29 U/L (17-59); BLOOD UREA NITROGEN 4 mg/dL (9-20); CALCIUM 8.2 mg/dl (8.6-10.4); GFR NON-AFRICAN AMERICAN > 60
[2018-09-24 09:50] LABS: BANDS 2 % (0-2); BASOPHIL 1 % (0-2); EOSINOPHIL 4 % (0-4); LYMPHOCYTE 8 % (20-40); MONOCYTE 11 % (0-10); NEUTROPHIL 74 % (50-75); PLATELET ESTIMATE SLIGHTLY INCREASED (NORMAL); TOTAL CELLS COUNTED 100
[2018-09-24] MEDS: Nitroglycerin 0.1 mg/hr Top Patch TD SCH (10:11)
--- NOTE | 2018-09-24 10:25 | CP.PCM.PN ---
Subjective - Date & Time of Evaluation Date of Evaluation: 09/24/18 Time of Evaluation: 07:30 - Subjective Subjective: Events reviewed Objective - Vital Signs/Intake and Output Vital Signs (last 24 hours): Temp Pulse Resp BP Pulse Ox 98.8 F 89 20 114/77 94 L 09/24/18 07:29 09/24/18 07:29 09/24/18 07:29 09/24/18 07:29 09/24/18 07:29 Intake and Output: 09/24/18 09/24/18 06:59 18:59 Intake Total 1070 Output Total 600 Balance 470 - Medications Medications: Current Medications Cilostazol (Pletal) 100 mg PO BID [facility] Last Admin: 09/23/18 10:08 Dose: Not Given Gabapentin (Neurontin) 300 mg PO TID [facility] Last Admin: 09/24/18 09:59 Dose: Not Given Home Med (Patient's Own Medication) 1 tab PO DAILY [facility] Home Med (Patient's Own Medication) 1 tab PO DAILY [facility] Hydromorphone HCl (Dilaudid) 0.5 mg IVP Q4H PRN PRN Reason: Pain, severe (8-10) Last Admin: 09/24/18 09:56 Dose: 0.5 mg Cefepime HCl (Maxipime Iv 2 Gm Premix) 2 gm in 100 mls @ 200 mls/hr IVPB Q12H [facility]; Protocol Stop: 09/26/18 13:31 Last Admin: 09/24/18 00:38 Dose: 200 mls/hr Metronidazole (Flagyl) 500 mg in 100 mls @ 100 mls/hr IVPB Q8H [facility]; Protocol Last Admin: 09/24/18 06:01 Dose: 100 mls/hr Sodium Chloride (Sodium Chloride 0.9%) 1,000 mls @ 60 mls/hr IV .[id number] [facility] Last Admin: 09/23/18 11:53 Dose: 60 mls/hr Insulin Aspart (Novolog) 0 unit SC Q6 [facility]; Protocol Last Admin: 09/24/18 06:38 Dose: Not Given Insulin Glargine (Lantus) 40 unit SC HS [facility] Last Admin: 09/23/18 21:38 Dose: 40 units Metoprolol Tartrate (Lopressor) 50 mg PO DAILY [facility] Last Admin: 09/24/18 09:58 Dose: Not Given Nitroglycerin (Nitro-Dur 0.1 Mg/Hr Patch) 1 patch TD DAILY [facility] Last Admin: 09/24/18 10:11 Dose: 1 patch Ondansetron HCl (Zofran Inj) 4 mg IVP Q4H PRN PRN Reason: Nausea/Vomiting Last Admin: 09/23/18 00:19 Dose: 4 mg Rosuvastatin Calcium (Crestor) 40 mg PO HS [facility] Last Admin: 09/23/18 21:43 Dose: Not Given - Labs Labs: 09/24/18 07:08 09/24/18 07:08 PT 13.4 SECONDS (9.7-12.2) H 09/21/18 06:21 INR 1.2 09/21/18 06:21 APTT 32 SECONDS (21-34) 09/21/18 06:21 Assessment and Plan - Assessment and Plan (Free Text) Assessment: 2D echo images viewed by me: Normal LV systolic function; Normal functioning AVR bioprosthetic; Stage I diastolic dysfunction - EKG Data EKG Interpreted by: Myself EKG shows normal: Sinus rhythm Rate: Normal - Imaging and Cardiology CT scan - abdomen Status: Image reviewed by me, Report reviewed by me (Acute cholecystitis) Assessment & Plan - Assessment and Plan (Free Text) Assessment: 53 year old man with acute cholecystitis abx, NPO Preop Clearance - patient is acceptable risk for this urgent procedure no further cardiac work up is required. ASHD high dose statin, asprin Angina chronic and stable on imdur s/p CABG; reports he had normal nuclear stress test last year. DM is chronic and stable on insulin HTN is chronic and stable on metoprolol PVD is chronic has 2 block claudication on pletal
--- NOTE | 2018-09-24 11:57 | CARD ---
APPROVED REPORT Date of service: 09/22/2018 EXAM: Two-dimensional and M-mode echocardiogram with Doppler and color Doppler. Other Information Quality : GoodRhythm : INDICATION Pre-Op Surgery/Intervention Status/Post Aortic Valve Replacement: Bioprosthetic 2D DIMENSIONS IVSd1.6 (0.7-1.1cm)LVDd4.2 (3.9-5.9cm) LVOT Diameter1.6 (1.8-2.4cm)PWd1.5 (0.7-1.1cm) LVDs3.1 (2.5-4.0cm)FS (%) 27.5 % LVEF (%)53.8 (>50%) M-Mode DIMENSIONS Left Atrium (MM)4.48 (2.5-4.0cm)Aortic Root3.02 (2.2-3.7cm) Aortic Cusp Exc.0.87 (1.5-2.0cm) Aortic Valve AoV Peak Tnzvfdrh739.9cm/sAoV VTI53.7cmAO Peak GR.65mmHg LVOT Peak Idejlqjz685.6cm/sLVOT VTI33.64cmAO Mean GR.34mmHg STUART (VMAX)1.24xg7NVP (VTI)1.33cm2 Mitral Valve MV E Tjctodmn42.6cm/sMV A Uxdoqfay839.2cm/sE/A ratio0.5 TDI Lateral E' Peak V9.40cm/sMedial E' Peak V6.18cm/sE/Lateral E'7.5 E/Medial E'11.4 Pulmonary Valve PV Peak Ckdaraph262.9cm/sPV Peak Grad.8mmHg Tricuspid Valve TR Peak Qmiznhra720oc/sTR Peak Gr.52dnQiLAVB83zrLi LEFT VENTRICLE The left ventricle is normal size. There is severe concentric left ventricular hypertrophy. The Ejection Fraction is 55-60%. Transmitral Doppler flow pattern is Grade I-abnormal relaxation pattern. RIGHT VENTRICLE The right ventricle is normal size. The right ventricular systolic function is normal. ATRIA The left atrium is moderately dilated. The right atrium size is normal. The interatrial septum is intact with no evidence for an atrial septal defect. AORTIC VALVE The aortic valve is trileaflet. The aortic valve is severely calcified. No aortic regurgitation is present. There is moderate valvular aortic stenosis. Calculated aortic valve area is 1.2 cm2 with maximum pressure gradient of 66 mmHg and mean pressure gradient of 34 mmHg. MITRAL VALVE The mitral valve is normal in structure. There is no mitral valve regurgitation noted. TRICUSPID VALVE The tricuspid valve is normal in structure. There is mild tricuspid regurgitation. Right ventricular systolic pressure is estimated at 25 mmHg. There is no pulmonary hypertension. PULMONIC VALVE The pulmonary valve is normal in structure. GREAT VESSELS The aortic root is normal size. The aortic root displays mild sclerocalcific changes of the aortic root. PERICARDIAL EFFUSION There is no pericardial effusion. <Conclusion> The left ventricle is normal size. There is severe concentric left ventricular hypertrophy. The Ejection Fraction is 55-60%. Transmitral Doppler flow pattern is Grade I-abnormal relaxation pattern. The left atrium is moderately dilated. The aortic valve is trileaflet. The aortic valve is severely calcified. No aortic regurgitation is present. There is moderate valvular aortic stenosis. Calculated aortic valve area is 1.2 cm2 with maximum pressure gradient of 66 mmHg and mean pressure gradient of 34 mmHg. There is mild tricuspid regurgitation. Right ventricular systolic pressure is estimated at 25 mmHg. There is no pulmonary hypertension. The aortic root is normal size. The aortic root displays mild sclerocalcific changes of the aortic root.
[2018-09-24] MEDS ORDERED: Bupivacaine 0.5%/Epi 1:200,000 (10 ML SOL) ONE (13:22)
[2018-09-24] MEDS ORDERED: ceFAZolin 1 gm in NS 0 GM/0 ML BAG IVPB ONE (13:23)
[2018-09-24] MEDS ORDERED: Midazolam 2 MG/2 ML VIAL ONE (13:41)
[2018-09-24] MEDS ORDERED: Etomidate 20 mg/10ml Inj IV ONE (13:58)
[2018-09-24] MEDS ORDERED: Oxycodone/Acetaminophen 5/325 mg Tab PO PRN ×2 (15:20)
--- NOTE | 2018-09-24 15:24 | PCM.SURG1 ---
Surgeon's Initial Post Op Note - Surgeon's Notes Surgeon: Dr. Spencer Flumer: Dr. Gambino Type of Anesthesia: General Endo Pre-Operative Diagnosis: Acute cholecystitis Operative Findings: purlent gallbladder with extensive fibrosis Post-Operative Diagnosis: same Operation Performed: laparoscopic cholecystectomy Specimen/Specimens Removed: gallbladder Estimated Blood Loss: EBL {In ML}: 100 Blood Products Given: N/A Drains Used: Michi Post-Op Condition: Good Date of Surgery/Procedure: 09/24/18 Time of Surgery/Procedure: 15:24
[2018-09-24] MEDS ORDERED: HYDROmorphone 0.5 mg/0.5 ml ISec IVP STA ×2 (16:04→16:32)
[2018-09-24] MEDS ORDERED: HYDROmorphone 0.5 mg/0.5 ml ISec IVP ONE (16:30)
[2018-09-24] MEDS ORDERED: Sodium Chloride 0.9% 1,000 ML IV ONE (16:37)
[2018-09-24] MEDS: Morphine 4 MG/ML VIAL IVP PRN (20:20)
[2018-09-24] MEDS: Sodium Chloride 0.9% 1,000 ML IV SCH (20:50)
[2018-09-24] MEDS: (Lantus) Insulin Glargine, Recombinant SC SCH (23:28)
[2018-09-25] MEDS: Morphine 4 MG/ML VIAL IVP PRN ×4 (00:40→21:47)
[2018-09-25 00:54] VITALS: RESP 20
[2018-09-25] MEDS ORDERED: Benzocaine/Menthol (Cepacol) Lozenge MT PRN (06:30)
[2018-09-25 07:03] LABS: MEAN CELL VOLUME 87.1 fL (80.0-94.0); MEAN CORPUSCULAR HEMOGLOBIN 28.9 pg (27.0-31.0); MEAN CORPUSCULAR HGB CONC 33.2 g/dL (33.0-37.0); MEAN PLATELET VOLUME 7.4 fL (7.2-11.7); RBC 4.49 Mil/uL (4.40-5.90); RED CELL DISTRIBUTION WIDTH 12.7 % (11.5-14.5); WHITE BLOOD COUNT 18.2 K/uL (4.8-10.8)
[2018-09-25 07:31] LABS: ALB/GLOB RATIO 1.2 (1.0-2.1); ALBUMIN 3.1 g/dL (3.5-5.0); ALT/SGPT 46 U/L (21-72); AST/SGOT 63 U/L (17-59); BLOOD UREA NITROGEN 8 mg/dL (9-20); CALCIUM 7.9 mg/dl (8.6-10.4); GFR NON-AFRICAN AMERICAN > 60
[2018-09-25] MEDS: (Novolog) Insulin Aspart, Recombinant 100 u/ml 10 ml vial SC SCH ×4 (07:58→21:38)
--- NOTE | 2018-09-25 09:29 | CP.PCM.PN ---
Subjective - Date & Time of Evaluation Date of Evaluation: 09/25/18 Time of Evaluation: 07:00 - Subjective Subjective: Surgery: Dr. Spencer Pt seen and examined. No acute overnight events. States he feels ok but admits to post-op pain around incisions. Tolerating liquids w/o nausea/vomiting. Denies fevers/chills, flatus/BM. Objective - Vital Signs/Intake and Output Vital Signs (last 24 hours): Temp Pulse Resp BP Pulse Ox 98.4 F 97 H 20 130/76 96 09/25/18 07:31 09/25/18 07:31 09/25/18 07:31 09/25/18 07:31 09/25/18 07:31 Intake and Output: 09/25/18 09/25/18 06:59 18:59 Intake Total 1675 Output Total 1010 Balance 665 - Medications Medications: Current Medications Benzocaine/Menthol (Cepacol Sore Throat) 1 deangelo MT DAILY PRN PRN Reason: Sore Throat Cilostazol (Pletal) 100 mg PO BID [facility] Last Admin: 09/23/18 10:08 Dose: Not Given Gabapentin (Neurontin) 300 mg PO TID [facility] Last Admin: 09/24/18 18:32 Dose: Not Given Home Med (Patient's Own Medication) 1 tab PO DAILY [facility] Home Med (Patient's Own Medication) 1 tab PO DAILY [facility] Sodium Chloride (Sodium Chloride 0.9%) 1,000 mls @ 60 mls/hr IV .[id number] [facility] Last Admin: 09/23/18 11:53 Dose: 60 mls/hr Piperacillin Sod/Tazobactam (Sod 3.375 gm/ Sodium Chloride) 100 mls @ 200 mls/hr IVPB Q6H [facility]; Protocol Insulin Aspart (Novolog) 0 unit SC ACHS [facility]; Protocol Last Admin: 09/25/18 07:58 Dose: 4 units Insulin Glargine (Lantus) 40 unit SC HS [facility] Last Admin: 09/24/18 23:28 Dose: 40 units Metoprolol Tartrate (Lopressor) 50 mg PO DAILY [facility] Last Admin: 09/24/18 09:58 Dose: Not Given Morphine Sulfate (Morphine) 4 mg IVP Q4 PRN PRN Reason: Pain, severe (8-10) Last Admin: 09/25/18 08:48 Dose: 4 mg Nitroglycerin (Nitro-Dur 0.1 Mg/Hr Patch) 1 patch TD DAILY [facility] Last Admin: 09/24/18 10:11 Dose: 1 patch Ondansetron HCl (Zofran Inj) 4 mg IVP Q4H PRN PRN Reason: Nausea/Vomiting Last Admin: 09/23/18 00:19 Dose: 4 mg Oxycodone/Acetaminophen (Percocet 5/325 Mg Tab) 1 tab PO Q6H PRN PRN Reason: Pain, moderate (4-7) Stop: 09/27/18 15:21 Rosuvastatin Calcium (Crestor) 40 mg PO HS [facility] Last Admin: 09/23/18 21:43 Dose: Not Given - Labs Labs: 09/25/18 06:53 09/25/18 06:53 PT 13.4 SECONDS (9.7-12.2) H 09/21/18 06:21 INR 1.2 09/21/18 06:21 APTT 32 SECONDS (21-34) 09/21/18 06:21 - Constitutional Appears: Well, No Acute Distress - Head Exam Head Exam: ATRAUMATIC, NORMOCEPHALIC - ENT Exam ENT Exam: Mucous Membranes Moist - Respiratory Exam Respiratory Exam: NORMAL BREATHING PATTERN - Cardiovascular Exam Cardiovascular Exam: RRR - GI/Abdominal Exam GI & Abdominal Exam: Soft, Tenderness (around incisions; C/D/I. Michi drain in place with serosang output ). absent: Distended, Guarding, Rebound - Neurological Exam Neurological Exam: Alert, Awake, Oriented x3 - Skin Skin Exam: Dry, Warm Assessment and Plan - Assessment and Plan (Free Text) Assessment: 53M s/p lap cholecystectomy; POD#1 Plan: - monitor drain output - advance diet as tolerated - encourage ambulation - cont IV ABX - incentive spirometer - d/w Dr. Mireya Sandoval
[2018-09-25] MEDS: Nitroglycerin 0.1 mg/hr Top Patch TD SCH (10:17)
[2018-09-25] MEDS: Cilostazol 100 mg Tab UD PO SCH ×2 (10:19→17:43)
--- NOTE | 2018-09-25 10:21 | CP.PCM.PN ---
Subjective - Date & Time of Evaluation Date of Evaluation: 09/25/18 Time of Evaluation: 10:18 - Subjective Subjective: PT POST OP DAY 1 STILL DRAIN IN BLOODY FLUID Objective - Vital Signs/Intake and Output Vital Signs (last 24 hours): Temp Pulse Resp BP Pulse Ox 98.4 F 97 H 20 130/76 96 09/25/18 07:31 09/25/18 09:29 09/25/18 07:31 09/25/18 07:31 09/25/18 07:31 Intake and Output: 09/25/18 09/25/18 06:59 18:59 Intake Total 1675 Output Total 1010 Balance 665 - Medications Medications: Current Medications Benzocaine/Menthol (Cepacol Sore Throat) 1 deangelo MT DAILY PRN PRN Reason: Sore Throat Cilostazol (Pletal) 100 mg PO BID [facility] Last Admin: 09/23/18 10:08 Dose: Not Given Gabapentin (Neurontin) 300 mg PO TID [facility] Last Admin: 09/24/18 18:32 Dose: Not Given Home Med (Patient's Own Medication) 1 tab PO DAILY [facility] Sodium Chloride (Sodium Chloride 0.9%) 1,000 mls @ 60 mls/hr IV .[id number] [facility] Last Admin: 09/23/18 11:53 Dose: 60 mls/hr Piperacillin Sod/Tazobactam (Sod 3.375 gm/ Sodium Chloride) 100 mls @ 200 mls/hr IVPB Q6H [facility]; Protocol Insulin Aspart (Novolog) 0 unit SC ACHS [facility]; Protocol Last Admin: 09/25/18 07:58 Dose: 4 units Metoprolol Tartrate (Lopressor) 50 mg PO DAILY [facility] Last Admin: 09/24/18 09:58 Dose: Not Given Morphine Sulfate (Morphine) 4 mg IVP Q4 PRN PRN Reason: Pain, severe (8-10) Last Admin: 09/25/18 08:48 Dose: 4 mg Nitroglycerin (Nitro-Dur 0.1 Mg/Hr Patch) 1 patch TD DAILY [facility] Last Admin: 09/24/18 10:11 Dose: 1 patch Ondansetron HCl (Zofran Inj) 4 mg IVP Q4H PRN PRN Reason: Nausea/Vomiting Last Admin: 09/23/18 00:19 Dose: 4 mg Oxycodone/Acetaminophen (Percocet 5/325 Mg Tab) 1 tab PO Q6H PRN PRN Reason: Pain, moderate (4-7) Stop: 09/27/18 15:21 Rosuvastatin Calcium (Crestor) 40 mg PO HS [facility] Last Admin: 09/23/18 21:43 Dose: Not Given - Labs Labs: 09/25/18 06:53 09/25/18 06:53 PT 13.4 SECONDS (9.7-12.2) H 09/21/18 06:21 INR 1.2 09/21/18 06:21 APTT 32 SECONDS (21-34) 09/21/18 06:21 - Constitutional Appears: Non-toxic - Head Exam Head Exam: ATRAUMATIC - Eye Exam Eye Exam: Normal appearance Pupil Exam: NORMAL ACCOMODATION - ENT Exam ENT Exam: Mucous Membranes Moist - Neck Exam Neck Exam: Full ROM - Respiratory Exam Respiratory Exam: NORMAL BREATHING PATTERN - Cardiovascular Exam Cardiovascular Exam: REGULAR RHYTHM - GI/Abdominal Exam GI & Abdominal Exam: Tenderness, Hyperactive Bowel Sounds - Extremities Exam Extremities Exam: Normal Inspection - Back Exam Back Exam: NORMAL INSPECTION - Neurological Exam Neurological Exam: Alert, Awake, Oriented x3 - Psychiatric Exam Psychiatric exam: Normal Affect - Skin Skin Exam: Normal Color Assessment and Plan - Assessment and Plan (Free Text) Assessment: S/P CHOLYSYSTECTOMY Plan: CONT ORDERED ANS SURGICAL PLAN
[2018-09-25] MEDS: Sodium Chloride 0.9% 1,000 ML IV SCH ×2 (10:50→14:30)
[2018-09-25] MEDS: Piperacillin/Tazobact 3.375 GM in Sodium Chloride 100 ML IVPB SCH ×3 (10:50→21:50)
--- NOTE | 2018-09-25 11:16 | CP.PCM.PN ---
Subjective - Date & Time of Evaluation Date of Evaluation: 09/25/18 Time of Evaluation: 11:13 - Subjective Subjective: no CP or SOB Noted need for straight cath for diff urinating No fevers or chills Objective - Vital Signs/Intake and Output Vital Signs (last 24 hours): Temp Pulse Resp BP Pulse Ox 98.4 F 97 H 20 130/76 96 09/25/18 07:31 09/25/18 09:29 09/25/18 07:31 09/25/18 07:31 09/25/18 07:31 Intake and Output: 09/25/18 09/25/18 06:59 18:59 Intake Total 1675 Output Total 1010 Balance 665 - Medications Medications: Current Medications Benzocaine/Menthol (Cepacol Sore Throat) 1 deangelo MT DAILY PRN PRN Reason: Sore Throat Cilostazol (Pletal) 100 mg PO BID [facility] Last Admin: 09/25/18 10:19 Dose: Not Given Gabapentin (Neurontin) 300 mg PO TID [facility] Last Admin: 09/25/18 10:17 Dose: Not Given Home Med (Patient's Own Medication) 1 tab PO DAILY [facility] Sodium Chloride (Sodium Chloride 0.9%) 1,000 mls @ 60 mls/hr IV .[id number] [facility] Last Admin: 09/25/18 10:50 Dose: 60 mls/hr Piperacillin Sod/Tazobactam (Sod 3.375 gm/ Sodium Chloride) 100 mls @ 200 mls/hr IVPB Q6H [facility]; Protocol Last Admin: 09/25/18 10:50 Dose: 200 mls/hr Insulin Aspart (Novolog) 0 unit SC ACHS [facility]; Protocol Last Admin: 09/25/18 07:58 Dose: 4 units Insulin Glargine (Lantus) 45 unit SC HS [facility] Metoprolol Tartrate (Lopressor) 50 mg PO DAILY [facility] Last Admin: 09/25/18 10:16 Dose: 50 mg Morphine Sulfate (Morphine) 4 mg IVP Q4 PRN PRN Reason: Pain, severe (8-10) Last Admin: 09/25/18 08:48 Dose: 4 mg Nitroglycerin (Nitro-Dur 0.1 Mg/Hr Patch) 1 patch TD DAILY [facility] Last Admin: 09/25/18 10:17 Dose: 1 patch Ondansetron HCl (Zofran Inj) 4 mg IVP Q4H PRN PRN Reason: Nausea/Vomiting Last Admin: 09/23/18 00:19 Dose: 4 mg Oxycodone/Acetaminophen (Percocet 5/325 Mg Tab) 1 tab PO Q6H PRN PRN Reason: Pain, moderate (4-7) Stop: 09/27/18 15:21 Rosuvastatin Calcium (Crestor) 40 mg PO HS [facility] Last Admin: 09/23/18 21:43 Dose: Not Given - Labs Labs: 09/25/18 06:53 09/25/18 06:53 PT 13.4 SECONDS (9.7-12.2) H 09/21/18 06:21 INR 1.2 09/21/18 06:21 APTT 32 SECONDS (21-34) 09/21/18 06:21 - Constitutional Appears: No Acute Distress - Head Exam Head Exam: ATRAUMATIC, NORMAL INSPECTION, NORMOCEPHALIC - Eye Exam Eye Exam: EOMI, Normal appearance. absent: Scleral icterus - ENT Exam ENT Exam: Mucous Membranes Moist, Normal Oropharynx - Neck Exam Neck Exam: Full ROM, Normal Inspection - Respiratory Exam Respiratory Exam: Clear to Ausculation Bilateral, NORMAL BREATHING PATTERN - Cardiovascular Exam Cardiovascular Exam: Tachycardia, +S1, +S2 - GI/Abdominal Exam GI & Abdominal Exam: Soft Additional comments: post lap huma dressing intact - Extremities Exam Extremities Exam: Full ROM, Normal Capillary Refill. absent: Pedal Edema - Neurological Exam Neurological Exam: Alert, Awake, Oriented x3 - Psychiatric Exam Psychiatric exam: Normal Affect, Normal Mood - Skin Skin Exam: Normal Color, Warm Assessment and Plan - Assessment and Plan (Free Text) Assessment: 53 year old man with acute cholecystitis now s/p lap huma No post op cardiac complication ASHD high dose statin, asprin AVR bioprosthetic stable Angina chronic and stable on imdur s/p CABG; reports he had normal nuclear stress test last year. DM is chronic and stable on insulin HTN is chronic and stable on metoprolol PVD is chronic has 2 block claudication on pletal d/c planning
[2018-09-25] MEDS: TRADJENTA 5 MG PO SCH (12:45)
[2018-09-25] MEDS ORDERED: Simethicone 80 mg Chewtab PO ONE (13:00)
--- NOTE | 2018-09-25 19:44 | CARD ---
APPROVED REPORT Date of service: 09/21/2018 EKG Measurement Heart [id number] <Conclusion> Normal sinus rhythm Possible Left atrial enlargement Right bundle branch block Left anterior fascicular block Bifascicular block Cannot rule out Inferior infarct (masked by fascicular block?), age undetermined Abnormal ECG
[2018-09-25] MEDS ORDERED: (Lantus) Insulin Glargine, Recombinant SC SCH (22:00)
[2018-09-26] MEDS: Piperacillin/Tazobact 3.375 GM in Sodium Chloride 100 ML IVPB SCH ×4 (04:20→21:58)
[2018-09-26 06:29] LABS: BASO # 0.1 K/uL (0.0-0.2); BASO % 0.3 % (0.0-2.0); EOS % 0.1 % (0.0-4.0); LYMPH # 0.6 K/uL (1.0-4.3); LYMPH % 2.9 % (20.0-40.0); MEAN CELL VOLUME 88.4 fL (80.0-94.0); MEAN CORPUSCULAR HEMOGLOBIN 29.8 pg (27.0-31.0); MEAN CORPUSCULAR HGB CONC 33.7 g/dL (33.0-37.0); MEAN PLATELET VOLUME 7.3 fL (7.2-11.7); MONO # 1.5 K/uL (0.0-0.8); MONO % 7.7 % (0.0-10.0); NEUT # 17.1 K/uL (1.8-7.0); PLATELET COUNT 452 K/uL (130-400); RBC 3.71 Mil/uL (4.40-5.90); RED CELL DISTRIBUTION WIDTH 12.6 % (11.5-14.5); WHITE BLOOD COUNT 19.2 K/uL (4.8-10.8)
[2018-09-26 07:00] LABS: BLOOD UREA NITROGEN 11 mg/dL (9-20); CALCIUM 7.4 mg/dl (8.6-10.4); GFR NON-AFRICAN AMERICAN > 60
[2018-09-26] MEDS: (Novolog) Insulin Aspart, Recombinant 100 u/ml 10 ml vial SC SCH ×4 (07:57→22:01)
[2018-09-26] MEDS: Morphine 4 MG/ML VIAL IVP PRN ×2 (08:12→18:34)
[2018-09-26] MEDS: Sodium Chloride 0.9% 1,000 ML IV SCH (08:21)
[2018-09-26] MEDS: Nitroglycerin 0.1 mg/hr Top Patch TD SCH (09:40)
[2018-09-26] MEDS: Cilostazol 100 mg Tab UD PO SCH ×2 (09:41→18:38)
[2018-09-26 10:06] LABS: LYMPHOCYTE 1 % (20-40); MONOCYTE 5 % (0-10); NEUTROPHIL 94 % (50-75); PLATELET ESTIMATE SLIGHTLY INCREASED (NORMAL); TOTAL CELLS COUNTED 100
--- NOTE | 2018-09-26 10:30 | CP.PCM.PN ---
Subjective - Date & Time of Evaluation Date of Evaluation: 09/26/18 Time of Evaluation: 10:26 - Subjective Subjective: Surgery Progress Note for Dr. Spencer 53M seen and evaluated at bedside this morning. Patient states he had chills overnight, no fevers noted. Continues to complain of right sided abdominal pain near the drain site. Drain site is leaking and drain is not adequately suctioning. Tolerating diet. Denies f/c, n/v/d, SOB, CP, or urinary symptoms. Objective - Vital Signs/Intake and Output Vital Signs (last 24 hours): Temp Pulse Resp BP Pulse Ox 97.7 F 110 H 20 107/68 95 09/26/18 08:02 09/26/18 08:02 09/26/18 08:02 09/26/18 08:02 09/26/18 08:02 Intake and Output: 09/26/18 09/26/18 06:59 18:59 Intake Total 880 Output Total 500 Balance 380 - Medications Medications: Current Medications Benzocaine/Menthol (Cepacol Sore Throat) 1 deangelo MT DAILY PRN PRN Reason: Sore Throat Cilostazol (Pletal) 100 mg PO BID [facility] Last Admin: 09/26/18 09:41 Dose: 100 mg Docusate Sodium (Colace) 100 mg PO DAILY [facility] Last Admin: 09/26/18 09:39 Dose: 100 mg Gabapentin (Neurontin) 300 mg PO TID [facility] Last Admin: 09/26/18 09:39 Dose: 300 mg Home Med (Patient's Own Medication) 1 tab PO 1200 [facility] Last Admin: 09/25/18 12:45 Dose: 1 tab Piperacillin Sod/Tazobactam (Sod 3.375 gm/ Sodium Chloride) 100 mls @ 200 mls/hr IVPB Q6H [facility]; Protocol Last Admin: 09/26/18 09:38 Dose: 200 mls/hr Insulin Aspart (Novolog) 0 unit SC ACHS [facility]; Protocol Last Admin: 09/26/18 07:57 Dose: 6 units Insulin Glargine (Lantus) 45 unit SC HS [facility] Last Admin: 09/25/18 21:42 Dose: 45 units Metoprolol Tartrate (Lopressor) 50 mg PO DAILY [facility] Last Admin: 09/26/18 09:39 Dose: 50 mg Morphine Sulfate (Morphine) 4 mg IVP Q4 PRN PRN Reason: Pain, severe (8-10) Last Admin: 09/26/18 08:12 Dose: 4 mg Nitroglycerin (Nitro-Dur 0.1 Mg/Hr Patch) 1 patch TD DAILY [facility] Last Admin: 09/26/18 09:40 Dose: 1 patch Ondansetron HCl (Zofran Inj) 4 mg IVP Q4H PRN PRN Reason: Nausea/Vomiting Last Admin: 09/23/18 00:19 Dose: 4 mg Oxycodone/Acetaminophen (Percocet 5/325 Mg Tab) 1 tab PO Q6H PRN PRN Reason: Pain, moderate (4-7) Stop: 09/27/18 15:21 Rosuvastatin Calcium (Crestor) 40 mg PO HS [facility] Last Admin: 09/25/18 21:54 Dose: 40 mg Tamsulosin HCl (Flomax) 0.4 mg PO DAILY [facility] Last Admin: 09/26/18 09:39 Dose: 0.4 mg - Labs Labs: 09/26/18 06:20 09/26/18 06:20 PT 13.4 SECONDS (9.7-12.2) H 09/21/18 06:21 INR 1.2 09/21/18 06:21 APTT 32 SECONDS (21-34) 09/21/18 06:21 - Constitutional Appears: Non-toxic, No Acute Distress - Head Exam Head Exam: ATRAUMATIC, NORMAL INSPECTION, NORMOCEPHALIC - Eye Exam Eye Exam: EOMI - ENT Exam ENT Exam: Mucous Membranes Dry - Respiratory Exam Respiratory Exam: NORMAL BREATHING PATTERN. absent: Respiratory Distress - Cardiovascular Exam Cardiovascular Exam: Tachycardia, REGULAR RHYTHM - GI/Abdominal Exam GI & Abdominal Exam: Distended, Soft, Tenderness. absent: Guarding, Rebound Additional comments: Dressing over drain site c/d/i - changed this morning Drain output 170cc serosanguinous overnight - Neurological Exam Neurological Exam: Alert, Awake - Psychiatric Exam Psychiatric exam: Normal Affect, Normal Mood - Skin Skin Exam: Dry, Intact, Normal Color, Warm Assessment and Plan - Assessment and Plan (Free Text) Assessment: 53M s/p laparoscopic cholecystectomy POD2 w/ RLQ arpita drain Plan: Discontinued IVF IV Abx Analgesics and antiemetics PRN Continue to monitor drain output Continue to monitor bowel function Continue to monitor diet tolerance Encourage IS use Encourage OOBTC Aggressive physical therapy Medical management per primary team D/w Dr. Johanna Gambino PGY1
--- NOTE | 2018-09-26 12:21 | CP.PCM.PN ---
Subjective - Date & Time of Evaluation Date of Evaluation: 09/26/18 Time of Evaluation: 12:21 - Subjective Subjective: pt seen still in bed still has drain on his bs is high Objective - Vital Signs/Intake and Output Vital Signs (last 24 hours): Temp Pulse Resp BP Pulse Ox 97.7 F 110 H 20 107/68 95 09/26/18 08:02 09/26/18 08:02 09/26/18 08:02 09/26/18 08:02 09/26/18 08:02 Intake and Output: 09/26/18 09/26/18 06:59 18:59 Intake Total 880 Output Total 500 Balance 380 - Medications Medications: Current Medications Benzocaine/Menthol (Cepacol Sore Throat) 1 deangelo MT DAILY PRN PRN Reason: Sore Throat Cilostazol (Pletal) 100 mg PO BID [facility] Last Admin: 09/26/18 09:41 Dose: 100 mg Docusate Sodium (Colace) 100 mg PO DAILY [facility] Last Admin: 09/26/18 09:39 Dose: 100 mg Gabapentin (Neurontin) 300 mg PO TID [facility] Last Admin: 09/26/18 09:39 Dose: 300 mg Home Med (Patient's Own Medication) 1 tab PO 1200 [facility] Last Admin: 09/25/18 12:45 Dose: 1 tab Piperacillin Sod/Tazobactam (Sod 3.375 gm/ Sodium Chloride) 100 mls @ 200 mls/hr IVPB Q6H [facility]; Protocol Last Admin: 09/26/18 09:38 Dose: 200 mls/hr Metronidazole (Flagyl) 500 mg in 100 mls @ 100 mls/hr IVPB Q8H [facility]; Protocol Insulin Aspart (Novolog) 0 unit SC ACHS [facility]; Protocol Last Admin: 09/26/18 11:47 Dose: 8 units Insulin Glargine (Lantus) 25 unit SC BID [facility] Metoprolol Tartrate (Lopressor) 50 mg PO DAILY [facility] Last Admin: 09/26/18 09:39 Dose: 50 mg Morphine Sulfate (Morphine) 4 mg IVP Q4 PRN PRN Reason: Pain, severe (8-10) Last Admin: 09/26/18 08:12 Dose: 4 mg Nitroglycerin (Nitro-Dur 0.1 Mg/Hr Patch) 1 patch TD DAILY [facility] Last Admin: 09/26/18 09:40 Dose: 1 patch Ondansetron HCl (Zofran Inj) 4 mg IVP Q4H PRN PRN Reason: Nausea/Vomiting Last Admin: 09/23/18 00:19 Dose: 4 mg Oxycodone/Acetaminophen (Percocet 5/325 Mg Tab) 1 tab PO Q6H PRN PRN Reason: Pain, moderate (4-7) Stop: 09/27/18 15:21 Rosuvastatin Calcium (Crestor) 40 mg PO HS [facility] Last Admin: 09/25/18 21:54 Dose: 40 mg Tamsulosin HCl (Flomax) 0.4 mg PO DAILY [facility] Last Admin: 09/26/18 09:39 Dose: 0.4 mg - Labs Labs: 09/26/18 06:20 09/26/18 06:20 PT 13.4 SECONDS (9.7-12.2) H 09/21/18 06:21 INR 1.2 09/21/18 06:21 APTT 32 SECONDS (21-34) 09/21/18 06:21
[2018-09-26] MEDS: metroNIDAZOLE IV 500 mg/100 ml 500 MG/100 ML BAG IVPB SCH ×2 (12:44→21:00)
[2018-09-26] MEDS: TRADJENTA 5 MG PO SCH (12:44)
[2018-09-26] MEDS ORDERED: POLYETHYLENE GLYCOL 3350 17 GM/Dose PACKET PO ONE (15:00)
[2018-09-26] MEDS: (Lantus) Insulin Glargine, Recombinant SC SCH (18:38)
[2018-09-27] MEDS: Morphine 4 MG/ML VIAL IVP PRN (02:48)
[2018-09-27] MEDS: Piperacillin/Tazobact 3.375 GM in Sodium Chloride 100 ML IVPB SCH ×4 (05:07→21:33)
[2018-09-27] MEDS: metroNIDAZOLE IV 500 mg/100 ml 500 MG/100 ML BAG IVPB SCH ×3 (05:07→20:00)
[2018-09-27 07:45] LABS: BASO # 0.1 K/uL (0.0-0.2); BASO % 0.3 % (0.0-2.0); EOS # 0.1 K/uL (0.0-0.7); EOS % 0.5 % (0.0-4.0); HEMOGLOBIN 11.4 g/dL (12.0-18.0); LYMPH # 1.2 K/uL (1.0-4.3); LYMPH % 5.3 % (20.0-40.0); MEAN CELL VOLUME 88.6 fL (80.0-94.0); MEAN CORPUSCULAR HGB CONC 32.7 g/dL (33.0-37.0); MEAN PLATELET VOLUME 7.3 fL (7.2-11.7); MONO # 1.7 K/uL (0.0-0.8); MONO % 7.5 % (0.0-10.0); NEUT # 19.4 K/uL (1.8-7.0); NEUT % 86.4 % (50.0-75.0); PLATELET COUNT 545 K/uL (130-400); RBC 3.92 Mil/uL (4.40-5.90); RED CELL DISTRIBUTION WIDTH 12.7 % (11.5-14.5); WHITE BLOOD COUNT 22.5 K/uL (4.8-10.8)
[2018-09-27 07:59] LABS: ALB/GLOB RATIO 1.1 (1.0-2.1); ALBUMIN 3.3 g/dL (3.5-5.0); ALT/SGPT 33 U/L (21-72); AST/SGOT 32 U/L (17-59); BLOOD UREA NITROGEN 8 mg/dL (9-20); CALCIUM 7.5 mg/dl (8.6-10.4); GFR NON-AFRICAN AMERICAN > 60
[2018-09-27] MEDS: (Novolog) Insulin Aspart, Recombinant 100 u/ml 10 ml vial SC SCH ×4 (08:01→22:23)
[2018-09-27] MEDS: Nitroglycerin 0.1 mg/hr Top Patch TD SCH (09:29)
[2018-09-27] MEDS: Cilostazol 100 mg Tab UD PO SCH ×2 (09:30→17:43)
[2018-09-27] MEDS: (Lantus) Insulin Glargine, Recombinant SC SCH ×3 (09:42→19:50)
[2018-09-27 09:50] LABS: BANDS 2 % (0-2); EOSINOPHIL 1 % (0-4); LYMPHOCYTE 5 % (20-40); MONOCYTE 8 % (0-10); NEUTROPHIL 84 % (50-75); PLATELET ESTIMATE INCREASED (NORMAL); TOTAL CELLS COUNTED 100
--- NOTE | 2018-09-27 10:56 | CP.PCM.PN ---
Subjective - Date & Time of Evaluation Date of Evaluation: 09/27/18 Time of Evaluation: 10:53 - Subjective Subjective: No CP or SOB No volume overload Reports voiding urine + adominal tenderness s/p lap huma (drains removed) Objective - Vital Signs/Intake and Output Vital Signs (last 24 hours): Temp Pulse Resp BP Pulse Ox 98.2 F 109 H 20 119/68 95 09/27/18 08:00 09/27/18 08:00 09/27/18 08:00 09/27/18 08:00 09/27/18 08:00 Intake and Output: 09/27/18 09/27/18 06:59 18:59 Intake Total 700 Balance 700 - Medications Medications: Current Medications Benzocaine/Menthol (Cepacol Sore Throat) 1 deangelo MT DAILY PRN PRN Reason: Sore Throat Cilostazol (Pletal) 100 mg PO BID [facility] Last Admin: 09/27/18 09:30 Dose: 100 mg Docusate Sodium (Colace) 100 mg PO DAILY [facility] Last Admin: 09/27/18 09:30 Dose: 100 mg Gabapentin (Neurontin) 300 mg PO TID [facility] Last Admin: 09/27/18 09:30 Dose: 300 mg Home Med (Patient's Own Medication) 1 tab PO 1200 [facility] Last Admin: 09/26/18 12:44 Dose: 1 tab Piperacillin Sod/Tazobactam (Sod 3.375 gm/ Sodium Chloride) 100 mls @ 200 mls/hr IVPB Q6H [facility]; Protocol Last Admin: 09/27/18 09:31 Dose: 200 mls/hr Metronidazole (Flagyl) 500 mg in 100 mls @ 100 mls/hr IVPB Q8H [facility]; Protocol Last Admin: 09/27/18 05:07 Dose: 100 mls/hr Insulin Aspart (Novolog) 0 unit SC ACHS [facility]; Protocol Last Admin: 09/27/18 08:01 Dose: 3 units Insulin Glargine (Lantus) 25 unit SC BID [facility] Last Admin: 09/27/18 09:42 Dose: 25 units Metoprolol Tartrate (Lopressor) 50 mg PO DAILY [facility] Last Admin: 09/27/18 09:41 Dose: 50 mg Morphine Sulfate (Morphine) 4 mg IVP Q4 PRN PRN Reason: Pain, severe (8-10) Last Admin: 09/27/18 02:48 Dose: 4 mg Nitroglycerin (Nitro-Dur 0.1 Mg/Hr Patch) 1 patch TD DAILY [facility] Last Admin: 09/27/18 09:29 Dose: 1 patch Ondansetron HCl (Zofran Inj) 4 mg IVP Q4H PRN PRN Reason: Nausea/Vomiting Last Admin: 09/23/18 00:19 Dose: 4 mg Oxycodone/Acetaminophen (Percocet 5/325 Mg Tab) 1 tab PO Q6H PRN PRN Reason: Pain, moderate (4-7) Stop: 09/27/18 15:21 Rosuvastatin Calcium (Crestor) 40 mg PO HS [facility] Last Admin: 09/26/18 21:29 Dose: 40 mg Tamsulosin HCl (Flomax) 0.4 mg PO DAILY [facility] Last Admin: 09/27/18 09:30 Dose: 0.4 mg - Labs Labs: 09/27/18 07:34 09/27/18 07:34 PT 13.4 SECONDS (9.7-12.2) H 09/21/18 06:21 INR 1.2 09/21/18 06:21 APTT 32 SECONDS (21-34) 09/21/18 06:21 - Constitutional Appears: No Acute Distress - Head Exam Head Exam: ATRAUMATIC, NORMAL INSPECTION, NORMOCEPHALIC - Eye Exam Eye Exam: EOMI, Normal appearance. absent: Scleral icterus - ENT Exam ENT Exam: Mucous Membranes Moist - Neck Exam Neck Exam: Full ROM, Normal Inspection. absent: Tenderness, Thyromegaly - Respiratory Exam Respiratory Exam: Clear to Ausculation Bilateral, NORMAL BREATHING PATTERN. absent: Rales, Rhonchi, Wheezes - Cardiovascular Exam Cardiovascular Exam: REGULAR RHYTHM, +S1, +S2, Murmur (SM soft RUSB normal A2) - GI/Abdominal Exam GI & Abdominal Exam: Tenderness, Normal Bowel Sounds. absent: Rigid - Extremities Exam Extremities Exam: Normal Inspection. absent: Calf Tenderness, Pedal Edema - Neurological Exam Neurological Exam: Alert, Awake, Oriented x3 - Psychiatric Exam Psychiatric exam: Normal Affect, Normal Mood - Skin Skin Exam: Normal Color, Warm Assessment and Plan - Assessment and Plan (Free Text) Assessment: 53 year old man with acute cholecystitis now s/p lap huma No post op cardiac complication post op pain resolving slowly - No fever + leukocytosis surgical f/u Tachycardia: mainly driven by post op pain and tenderness ASHD high dose statin, asprin AVR bioprosthetic stable Angina chronic and stable on imdur s/p CABG; reports he had normal nuclear stress test last year. DM is chronic and stable on insulin HTN is chronic and stable on metoprolol PVD is chronic has 2 block claudication on pletal
--- NOTE | 2018-09-27 12:03 | CP.PCM.PN ---
Subjective - Date & Time of Evaluation Date of Evaluation: 09/27/18 Time of Evaluation: 07:00 - Subjective Subjective: Surgery Note for Dr. Spencer 53M seen and evaluated at bedside this morning. No acute events overnight. Patient complains of incisional pain. Patient is voiding and ambulating. He has not passed flatus or had a bowel movement. Tolerating diet. Denies f/c, n/v/d, SOB, CP, or urinary symptoms. Objective - Vital Signs/Intake and Output Vital Signs (last 24 hours): Temp Pulse Resp BP Pulse Ox 98.2 F 109 H 20 119/68 95 09/27/18 08:00 09/27/18 08:00 09/27/18 08:00 09/27/18 08:00 09/27/18 08:00 Intake and Output: 09/27/18 09/27/18 06:59 18:59 Intake Total 700 Balance 700 - Medications Medications: Current Medications Benzocaine/Menthol (Cepacol Sore Throat) 1 deangelo MT DAILY PRN PRN Reason: Sore Throat Cilostazol (Pletal) 100 mg PO BID [facility] Last Admin: 09/27/18 09:30 Dose: 100 mg Docusate Sodium (Colace) 100 mg PO DAILY [facility] Last Admin: 09/27/18 09:30 Dose: 100 mg Gabapentin (Neurontin) 300 mg PO TID [facility] Last Admin: 09/27/18 09:30 Dose: 300 mg Home Med (Patient's Own Medication) 1 tab PO 1200 [facility] Last Admin: 09/26/18 12:44 Dose: 1 tab Piperacillin Sod/Tazobactam (Sod 3.375 gm/ Sodium Chloride) 100 mls @ 200 mls/hr IVPB Q6H [facility]; Protocol Last Admin: 09/27/18 09:31 Dose: 200 mls/hr Metronidazole (Flagyl) 500 mg in 100 mls @ 100 mls/hr IVPB Q8H [facility]; Protocol Last Admin: 09/27/18 05:07 Dose: 100 mls/hr Insulin Aspart (Novolog) 0 unit SC ACHS [facility]; Protocol Last Admin: 09/27/18 08:01 Dose: 3 units Insulin Glargine (Lantus) 25 unit SC BID [facility] Last Admin: 09/27/18 09:42 Dose: 25 units Metoprolol Tartrate (Lopressor) 50 mg PO DAILY [facility] Last Admin: 09/27/18 09:41 Dose: 50 mg Morphine Sulfate (Morphine) 4 mg IVP Q4 PRN PRN Reason: Pain, severe (8-10) Last Admin: 09/27/18 02:48 Dose: 4 mg Nitroglycerin (Nitro-Dur 0.1 Mg/Hr Patch) 1 patch TD DAILY [facility] Last Admin: 09/27/18 09:29 Dose: 1 patch Ondansetron HCl (Zofran Inj) 4 mg IVP Q4H PRN PRN Reason: Nausea/Vomiting Last Admin: 09/23/18 00:19 Dose: 4 mg Oxycodone/Acetaminophen (Percocet 5/325 Mg Tab) 1 tab PO Q6H PRN PRN Reason: Pain, moderate (4-7) Stop: 09/27/18 15:21 Rosuvastatin Calcium (Crestor) 40 mg PO HS [facility] Last Admin: 09/26/18 21:29 Dose: 40 mg Tamsulosin HCl (Flomax) 0.4 mg PO DAILY [facility] Last Admin: 09/27/18 09:30 Dose: 0.4 mg - Labs Labs: 09/27/18 07:34 09/27/18 07:34 PT 13.4 SECONDS (9.7-12.2) H 09/21/18 06:21 INR 1.2 09/21/18 06:21 APTT 32 SECONDS (21-34) 09/21/18 06:21 - Constitutional Appears: Non-toxic, No Acute Distress - Head Exam Head Exam: ATRAUMATIC, NORMAL INSPECTION, NORMOCEPHALIC - Eye Exam Eye Exam: EOMI - ENT Exam ENT Exam: Mucous Membranes Dry - Respiratory Exam Respiratory Exam: NORMAL BREATHING PATTERN. absent: Respiratory Distress - Cardiovascular Exam Cardiovascular Exam: REGULAR RHYTHM. absent: Tachycardia - GI/Abdominal Exam GI & Abdominal Exam: Distended, Soft, Tenderness, Normal Bowel Sounds Additional comments: RUQ Michi drain removed dressing c/d/i - Neurological Exam Neurological Exam: Alert, Awake - Psychiatric Exam Psychiatric exam: Normal Affect, Normal Mood - Skin Skin Exam: Dry, Intact, Normal Color, Warm Assessment and Plan - Assessment and Plan (Free Text) Assessment: 53M s/p laparoscopic cholecystectomy POD3 Plan: IV Abx Analgesics and antiemetics PRN Drain removed Continue to monitor bowel function Continue to monitor diet tolerance Encourage IS use Encourage OOBTC Aggressive physical therapy Medical management per primary team D/w Dr. Johanna Gambino PGY1
[2018-09-27] MEDS: TRADJENTA 5 MG PO SCH (12:04)
--- NOTE | 2018-09-27 18:40 | CP.PCM.PN ---
Subjective - Date & Time of Evaluation Date of Evaluation: 09/27/18 Time of Evaluation: 18:39 - Subjective Subjective: pt feels beter bs sugar still hi Objective - Vital Signs/Intake and Output Vital Signs (last 24 hours): Temp Pulse Resp BP Pulse Ox 97.8 F 101 H 20 98/67 L 97 09/27/18 15:00 09/27/18 15:00 09/27/18 15:00 09/27/18 15:00 09/27/18 15:00 Intake and Output: 09/27/18 09/27/18 06:59 18:59 Intake Total 700 Balance 700 - Medications Medications: Current Medications Benzocaine/Menthol (Cepacol Sore Throat) 1 deangelo MT DAILY PRN PRN Reason: Sore Throat Cilostazol (Pletal) 100 mg PO BID [facility] Last Admin: 09/27/18 17:43 Dose: 100 mg Docusate Sodium (Colace) 100 mg PO DAILY [facility] Last Admin: 09/27/18 09:30 Dose: 100 mg Gabapentin (Neurontin) 300 mg PO TID [facility] Last Admin: 09/27/18 17:43 Dose: 300 mg Home Med (Patient's Own Medication) 1 tab PO 1200 [facility] Last Admin: 09/27/18 12:04 Dose: 1 tab Piperacillin Sod/Tazobactam (Sod 3.375 gm/ Sodium Chloride) 100 mls @ 200 mls/hr IVPB Q6H [facility]; Protocol Last Admin: 09/27/18 16:22 Dose: 200 mls/hr Metronidazole (Flagyl) 500 mg in 100 mls @ 100 mls/hr IVPB Q8H [facility]; Protocol Last Admin: 09/27/18 12:55 Dose: 100 mls/hr Insulin Aspart (Novolog) 0 unit SC [facility]; Protocol Last Admin: 09/27/18 17:43 Dose: 6 units Insulin Glargine (Lantus) 35 unit SC BID [facility] Insulin Human Regular (Novolin R) 5 unit SC ACHS [facility] Metoprolol Tartrate (Lopressor) 50 mg PO DAILY [facility] Last Admin: 09/27/18 09:41 Dose: 50 mg Morphine Sulfate (Morphine) 4 mg IVP Q4 PRN PRN Reason: Pain, severe (8-10) Last Admin: 09/27/18 02:48 Dose: 4 mg Nitroglycerin (Nitro-Dur 0.1 Mg/Hr Patch) 1 patch TD DAILY [facility] Last Admin: 09/27/18 09:29 Dose: 1 patch Ondansetron HCl (Zofran Inj) 4 mg IVP Q4H PRN PRN Reason: Nausea/Vomiting Last Admin: 09/23/18 00:19 Dose: 4 mg Rosuvastatin Calcium (Crestor) 40 mg PO HS [facility] Last Admin: 09/26/18 21:29 Dose: 40 mg Tamsulosin HCl (Flomax) 0.4 mg PO DAILY [facility] Last Admin: 09/27/18 09:30 Dose: 0.4 mg - Labs Labs: 09/27/18 07:34 09/27/18 07:34 PT 13.4 SECONDS (9.7-12.2) H 09/21/18 06:21 INR 1.2 09/21/18 06:21 APTT 32 SECONDS (21-34) 09/21/18 06:21 - Constitutional Appears: Non-toxic - Head Exam Head Exam: ATRAUMATIC - Eye Exam Eye Exam: Normal appearance Pupil Exam: NORMAL ACCOMODATION - ENT Exam ENT Exam: Normal Exam - Neck Exam Neck Exam: Full ROM - Respiratory Exam Respiratory Exam: NORMAL BREATHING PATTERN - GI/Abdominal Exam GI & Abdominal Exam: Soft - Exam Exam: NORMAL INSPECTION - Back Exam Back Exam: NORMAL INSPECTION - Neurological Exam Neurological Exam: Alert, Awake, Normal Gait, Oriented x3 - Psychiatric Exam Psychiatric exam: Normal Affect Assessment and Plan - Assessment and Plan (Free Text) Assessment: dmid uncontroled Plan: increase insulin
[2018-09-27] MEDS: (Novolin R) Insulin Human Regular 100 units/ml vial SC SCH (22:22)
[2018-09-28] MEDS: Piperacillin/Tazobact 3.375 GM in Sodium Chloride 100 ML IVPB SCH ×2 (04:17→09:44)
[2018-09-28] MEDS: metroNIDAZOLE IV 500 mg/100 ml 500 MG/100 ML BAG IVPB SCH ×2 (04:18→12:01)
[2018-09-28] MEDS: Morphine 4 MG/ML VIAL IVP PRN (05:03)
[2018-09-28 08:01] VITALS: BP 126/64; PULSE 96; TEMP 98.6; O2SAT 96
[2018-09-28 08:01] LABS: HEMOGLOBIN 9.6 g/dL (12.0-18.0); MEAN CELL VOLUME 87.7 fL (80.0-94.0); MEAN CORPUSCULAR HEMOGLOBIN 30.3 pg (27.0-31.0); MEAN CORPUSCULAR HGB CONC 34.5 g/dL (33.0-37.0); MEAN PLATELET VOLUME 7.4 fL (7.2-11.7); RBC 3.17 Mil/uL (4.40-5.90); RED CELL DISTRIBUTION WIDTH 12.8 % (11.5-14.5); WHITE BLOOD COUNT 16.5 K/uL (4.8-10.8)
[2018-09-28] MEDS: (Novolin R) Insulin Human Regular 100 units/ml vial SC SCH ×2 (08:12→11:59)
[2018-09-28] MEDS: (Novolog) Insulin Aspart, Recombinant 100 u/ml 10 ml vial SC SCH ×2 (08:13→11:58)
[2018-09-28 08:18] LABS: ALBUMIN 2.7 g/dL (3.5-5.0); ALT/SGPT 32 U/L (21-72); AST/SGOT 31 U/L (17-59); BLOOD UREA NITROGEN 6 mg/dL (9-20); CALCIUM 7.4 mg/dl (8.6-10.4); GFR NON-AFRICAN AMERICAN > 60
[2018-09-28] MEDS: Cilostazol 100 mg Tab UD PO SCH (09:42)
--- NOTE | 2018-09-28 09:49 | CP.PCM.PN ---
Subjective - Date & Time of Evaluation Date of Evaluation: 09/28/18 Time of Evaluation: 09:46 - Subjective Subjective: Surgery Note for Dr. Spencer 53M seen and evaluated at bedside this morning. No acute events overnight. Complains of mild incisional pain. Patient is ambulating, voiding, passing flatus, and having bowel movements. Denies f/c, n/v/d, SOB, CP, or urinary symptoms. Objective - Vital Signs/Intake and Output Vital Signs (last 24 hours): Temp Pulse Resp BP Pulse Ox 98.6 F 96 H 20 126/64 96 09/28/18 07:00 09/28/18 07:00 09/28/18 07:00 09/28/18 07:00 09/28/18 07:00 Intake and Output: 09/28/18 09/28/18 06:59 18:59 Intake Total 900 Balance 900 - Medications Medications: Current Medications Benzocaine/Menthol (Cepacol Sore Throat) 1 deangelo MT DAILY PRN PRN Reason: Sore Throat Cilostazol (Pletal) 100 mg PO BID [facility] Last Admin: 09/28/18 09:42 Dose: 100 mg Docusate Sodium (Colace) 100 mg PO DAILY [facility] Last Admin: 09/28/18 09:42 Dose: 100 mg Gabapentin (Neurontin) 300 mg PO TID [facility] Last Admin: 09/28/18 09:42 Dose: 300 mg Home Med (Patient's Own Medication) 1 tab PO 1200 [facility] Last Admin: 09/27/18 12:04 Dose: 1 tab Piperacillin Sod/Tazobactam (Sod 3.375 gm/ Sodium Chloride) 100 mls @ 200 mls/hr IVPB Q6H [facility]; Protocol Last Admin: 09/28/18 04:17 Dose: 200 mls/hr Metronidazole (Flagyl) 500 mg in 100 mls @ 100 mls/hr IVPB Q8H [facility]; Protocol Last Admin: 09/28/18 04:18 Dose: 100 mls/hr Insulin Aspart (Novolog) 0 unit SC ACHS [facility]; Protocol Last Admin: 09/28/18 08:13 Dose: 4 units Insulin Glargine (Lantus) 35 unit SC BID [facility] Last Admin: 09/27/18 19:50 Dose: 10 units Insulin Human Regular (Novolin R) 5 unit SC ACHS [facility] Last Admin: 09/28/18 08:12 Dose: 5 units Metoprolol Tartrate (Lopressor) 50 mg PO DAILY [facility] Last Admin: 09/27/18 09:41 Dose: 50 mg Morphine Sulfate (Morphine) 4 mg IVP Q4 PRN PRN Reason: Pain, severe (8-10) Last Admin: 09/28/18 05:03 Dose: 4 mg Nitroglycerin (Nitro-Dur 0.1 Mg/Hr Patch) 1 patch TD DAILY [facility] Last Admin: 09/27/18 09:29 Dose: 1 patch Ondansetron HCl (Zofran Inj) 4 mg IVP Q4H PRN PRN Reason: Nausea/Vomiting Last Admin: 09/23/18 00:19 Dose: 4 mg Rosuvastatin Calcium (Crestor) 40 mg PO HS [facility] Last Admin: 09/27/18 21:24 Dose: 40 mg Tamsulosin HCl (Flomax) 0.4 mg PO DAILY [facility] Last Admin: 09/28/18 09:42 Dose: 0.4 mg - Labs Labs: 09/28/18 07:51 09/28/18 07:51 PT 13.4 SECONDS (9.7-12.2) H 09/21/18 06:21 INR 1.2 09/21/18 06:21 APTT 32 SECONDS (21-34) 09/21/18 06:21 - Constitutional Appears: Well, Non-toxic, No Acute Distress - Head Exam Head Exam: ATRAUMATIC, NORMAL INSPECTION, NORMOCEPHALIC - Eye Exam Eye Exam: EOMI - ENT Exam ENT Exam: Mucous Membranes Moist - Respiratory Exam Respiratory Exam: NORMAL BREATHING PATTERN. absent: Respiratory Distress - Cardiovascular Exam Cardiovascular Exam: REGULAR RHYTHM. absent: Tachycardia - GI/Abdominal Exam GI & Abdominal Exam: Soft, Normal Bowel Sounds. absent: Distended, Guarding, Tenderness, Rebound Additional comments: incisions c/d/i - Neurological Exam Neurological Exam: Alert, Awake - Psychiatric Exam Psychiatric exam: Normal Affect, Normal Mood - Skin Skin Exam: Dry, Intact, Normal Color, Warm Assessment and Plan - Assessment and Plan (Free Text) Assessment: 53M s/p laparoscopic cholecystectomy POD4 Plan: Leukocytosis downtrending today Continue IV Abx Antiemetics and analgesics Encourage ambulation and OOBTC Encourage IS use AM labs D/w Dr. Johanna Gambino PGY1
[2018-09-28] MEDS: (Lantus) Insulin Glargine, Recombinant SC SCH (11:58)
[2018-09-28] MEDS: TRADJENTA 5 MG PO SCH (11:59)
--- NOTE | 2018-09-28 12:00 | CP.PCM.PN ---
Subjective - Date & Time of Evaluation Date of Evaluation: 09/28/18 Time of Evaluation: 11:57 - Subjective Subjective: seen by me and surgean dr myers feels goog will disch today bs improved Objective - Vital Signs/Intake and Output Vital Signs (last 24 hours): Temp Pulse Resp BP Pulse Ox 98.6 F 96 H 20 126/64 96 09/28/18 07:00 09/28/18 07:00 09/28/18 07:00 09/28/18 07:00 09/28/18 07:00 Intake and Output: 09/28/18 09/28/18 06:59 18:59 Intake Total 900 Balance 900 - Medications Medications: Current Medications Benzocaine/Menthol (Cepacol Sore Throat) 1 deangelo MT DAILY PRN PRN Reason: Sore Throat Cilostazol (Pletal) 100 mg PO BID [facility] Last Admin: 09/28/18 09:42 Dose: 100 mg Docusate Sodium (Colace) 100 mg PO DAILY [facility] Last Admin: 09/28/18 09:42 Dose: 100 mg Gabapentin (Neurontin) 300 mg PO TID [facility] Last Admin: 09/28/18 09:42 Dose: 300 mg Home Med (Patient's Own Medication) 1 tab PO 1200 [facility] Last Admin: 09/27/18 12:04 Dose: 1 tab Metronidazole (Flagyl) 500 mg in 100 mls @ 100 mls/hr IVPB Q8H [facility]; Protocol Last Admin: 09/28/18 04:18 Dose: 100 mls/hr Insulin Aspart (Novolog) 0 unit SC ACHS [facility]; Protocol Last Admin: 09/28/18 08:13 Dose: 4 units Insulin Glargine (Lantus) 35 unit SC BID [facility] Last Admin: 09/27/18 19:50 Dose: 10 units Insulin Human Regular (Novolin R) 5 unit SC ACHS [facility] Last Admin: 09/28/18 08:12 Dose: 5 units Metoprolol Tartrate (Lopressor) 50 mg PO DAILY [facility] Last Admin: 09/28/18 09:54 Dose: 50 mg Morphine Sulfate (Morphine) 4 mg IVP Q4 PRN PRN Reason: Pain, severe (8-10) Last Admin: 09/28/18 05:03 Dose: 4 mg Nitroglycerin (Nitro-Dur 0.1 Mg/Hr Patch) 1 patch TD DAILY [facility] Last Admin: 09/27/18 09:29 Dose: 1 patch Ondansetron HCl (Zofran Inj) 4 mg IVP Q4H PRN PRN Reason: Nausea/Vomiting Last Admin: 09/23/18 00:19 Dose: 4 mg Rosuvastatin Calcium (Crestor) 40 mg PO HS [facility] Last Admin: 09/27/18 21:24 Dose: 40 mg Tamsulosin HCl (Flomax) 0.4 mg PO DAILY [facility] Last Admin: 09/28/18 09:42 Dose: 0.4 mg - Labs Labs: 09/28/18 07:51 09/28/18 07:51 PT 13.4 SECONDS (9.7-12.2) H 09/21/18 06:21 INR 1.2 09/21/18 06:21 APTT 32 SECONDS (21-34) 09/21/18 06:21 - Constitutional Appears: Non-toxic - Head Exam Head Exam: NORMAL INSPECTION - Eye Exam Eye Exam: Normal appearance Pupil Exam: NORMAL ACCOMODATION - ENT Exam ENT Exam: Mucous Membranes Moist - Neck Exam Neck Exam: Full ROM - Respiratory Exam Respiratory Exam: Clear to Ausculation Bilateral - Cardiovascular Exam Cardiovascular Exam: REGULAR RHYTHM - GI/Abdominal Exam GI & Abdominal Exam: Normal Bowel Sounds - Rectal Exam Rectal Exam: NORMAL INSPECTION - Exam Exam: NORMAL INSPECTION External exam: NORMAL EXTERNAL EXAM - Back Exam Back Exam: vertebral tenderness - Neurological Exam Neurological Exam: Alert, Awake, Normal Gait, Oriented x3 - Psychiatric Exam Psychiatric exam: Normal Affect - Skin Skin Exam: Normal Color Assessment and Plan - Assessment and Plan (Free Text) Assessment: s/p lab cholycystectomy for infection dmid klebsiella infection wound aneamia Plan: will d/c home with med and f/u in office
[2018-09-28] MEDS: Nitroglycerin 0.1 mg/hr Top Patch TD SCH (12:07)
--- NOTE | 2018-09-28 14:35 | CP.PCM.PN ---
Subjective - Date & Time of Evaluation Date of Evaluation: 09/28/18 Time of Evaluation: 14:33 - Subjective Subjective: Feeling better No CP or SOB Objective - Vital Signs/Intake and Output Vital Signs (last 24 hours): Temp Pulse Resp BP Pulse Ox 98.6 F 96 H 20 126/64 96 09/28/18 07:00 09/28/18 07:00 09/28/18 07:00 09/28/18 07:00 09/28/18 07:00 Intake and Output: 09/28/18 09/28/18 06:59 18:59 Intake Total 900 Balance 900 - Medications Medications: Current Medications Benzocaine/Menthol (Cepacol Sore Throat) 1 deangelo MT DAILY PRN PRN Reason: Sore Throat Cilostazol (Pletal) 100 mg PO BID [facility] Last Admin: 09/28/18 09:42 Dose: 100 mg Docusate Sodium (Colace) 100 mg PO DAILY [facility] Last Admin: 09/28/18 09:42 Dose: 100 mg Gabapentin (Neurontin) 300 mg PO TID [facility] Last Admin: 09/28/18 14:09 Dose: 300 mg Home Med (Patient's Own Medication) 1 tab PO 1200 [facility] Last Admin: 09/28/18 11:59 Dose: 1 tab Metronidazole (Flagyl) 500 mg in 100 mls @ 100 mls/hr IVPB Q8H [facility]; Protocol Last Admin: 09/28/18 12:01 Dose: 100 mls/hr Insulin Aspart (Novolog) 0 unit SC ACHS [facility]; Protocol Last Admin: 09/28/18 11:58 Dose: 4 units Insulin Glargine (Lantus) 35 unit SC BID [facility] Last Admin: 09/28/18 11:58 Dose: 35 units Insulin Human Regular (Novolin R) 5 unit SC ACHS [facility] Last Admin: 09/28/18 11:59 Dose: 5 units Metoprolol Tartrate (Lopressor) 50 mg PO DAILY [facility] Last Admin: 09/28/18 09:54 Dose: 50 mg Morphine Sulfate (Morphine) 4 mg IVP Q4 PRN PRN Reason: Pain, severe (8-10) Last Admin: 09/28/18 05:03 Dose: 4 mg Nitroglycerin (Nitro-Dur 0.1 Mg/Hr Patch) 1 patch TD DAILY [facility] Last Admin: 09/28/18 12:07 Dose: 1 patch Ondansetron HCl (Zofran Inj) 4 mg IVP Q4H PRN PRN Reason: Nausea/Vomiting Last Admin: 09/23/18 00:19 Dose: 4 mg Rosuvastatin Calcium (Crestor) 40 mg PO HS [facility] Last Admin: 09/27/18 21:24 Dose: 40 mg Tamsulosin HCl (Flomax) 0.4 mg PO DAILY [facility] Last Admin: 09/28/18 09:42 Dose: 0.4 mg - Labs Labs: 09/28/18 07:51 09/28/18 07:51 PT 13.4 SECONDS (9.7-12.2) H 09/21/18 06:21 INR 1.2 09/21/18 06:21 APTT 32 SECONDS (21-34) 09/21/18 06:21 - Constitutional Appears: No Acute Distress - Head Exam Head Exam: ATRAUMATIC, NORMAL INSPECTION, NORMOCEPHALIC - Eye Exam Eye Exam: EOMI, Normal appearance. absent: Scleral icterus - ENT Exam ENT Exam: Mucous Membranes Moist, Normal Exam - Respiratory Exam Respiratory Exam: Clear to Ausculation Bilateral, NORMAL BREATHING PATTERN. absent: Rales, Rhonchi, Wheezes - Cardiovascular Exam Cardiovascular Exam: REGULAR RHYTHM, +S1, +S2, Murmur (soft DIVYA 2/6 RUSB no rad). absent: JVD - GI/Abdominal Exam GI & Abdominal Exam: Tenderness (mild post op tenderness: improving), Normal Bowel Sounds. absent: Guarding, Pulsatile Mass, Rebound - Neurological Exam Neurological Exam: Alert, Awake, Oriented x3 - Psychiatric Exam Psychiatric exam: Normal Affect, Normal Mood - Skin Skin Exam: Normal Color, Warm Assessment and Plan - Assessment and Plan (Free Text) Assessment: 53 year old man with acute cholecystitis now s/p lap huma No post op cardiac complication post op pain resolving slowly + Flatus , + voiding - No fever + leukocytosis improving surgical f/u Tachycardia: mainly driven by post op pain and tenderness d/c planning when appropriate ASHD high dose statin. ASA 81 when stable post op AVR bioprosthetic stable Angina chronic and stable s/p CABG; reports he had normal nuclear stress test last year. DM is chronic and stable on insulin HTN is chronic and stable on metoprolol PVD is chronic has 2 block claudication on pletal
[2018-09-28] MEDS ORDERED: Potassium Chloride 20 mEq ER Tab PO STA (15:45)
--- NOTE | 2018-09-28 15:59 | CP.PCM.PN ---
Subjective - Date & Time of Evaluation Date of Evaluation: 09/28/18 Time of Evaluation: 15:59 - Subjective Subjective: alert, orientedx3, denies acute distress, tolerating diet. Objective - Vital Signs/Intake and Output Vital Signs (last 24 hours): Temp Pulse Resp BP Pulse Ox 98.6 F 96 H 20 126/64 96 09/28/18 07:00 09/28/18 07:00 09/28/18 07:00 09/28/18 15:12 09/28/18 07:00 Intake and Output: 09/28/18 09/28/18 06:59 18:59 Intake Total 900 800 Balance 900 800 - Medications Medications: Current Medications Benzocaine/Menthol (Cepacol Sore Throat) 1 deangelo MT DAILY PRN PRN Reason: Sore Throat Cilostazol (Pletal) 100 mg PO BID [facility] Last Admin: 09/28/18 09:42 Dose: 100 mg Docusate Sodium (Colace) 100 mg PO DAILY [facility] Last Admin: 09/28/18 09:42 Dose: 100 mg Gabapentin (Neurontin) 300 mg PO TID [facility] Last Admin: 09/28/18 14:09 Dose: 300 mg Home Med (Patient's Own Medication) 1 tab PO 1200 [facility] Last Admin: 09/28/18 11:59 Dose: 1 tab Metronidazole (Flagyl) 500 mg in 100 mls @ 100 mls/hr IVPB Q8H [facility]; Protocol Last Admin: 09/28/18 12:01 Dose: 100 mls/hr Insulin Aspart (Novolog) 0 unit SC ACHS [facility]; Protocol Last Admin: 09/28/18 11:58 Dose: 4 units Insulin Glargine (Lantus) 35 unit SC BID [facility] Last Admin: 09/28/18 11:58 Dose: 35 units Insulin Human Regular (Novolin R) 5 unit SC ACHS [facility] Last Admin: 09/28/18 11:59 Dose: 5 units Metoprolol Tartrate (Lopressor) 50 mg PO DAILY [facility] Last Admin: 09/28/18 09:54 Dose: 50 mg Morphine Sulfate (Morphine) 4 mg IVP Q4 PRN PRN Reason: Pain, severe (8-10) Last Admin: 09/28/18 05:03 Dose: 4 mg Nitroglycerin (Nitro-Dur 0.1 Mg/Hr Patch) 1 patch TD DAILY [facility] Last Admin: 09/28/18 12:07 Dose: 1 patch Ondansetron HCl (Zofran Inj) 4 mg IVP Q4H PRN PRN Reason: Nausea/Vomiting Last Admin: 09/23/18 00:19 Dose: 4 mg Rosuvastatin Calcium (Crestor) 40 mg PO HS [facility] Last Admin: 09/27/18 21:24 Dose: 40 mg Tamsulosin HCl (Flomax) 0.4 mg PO DAILY [facility] Last Admin: 09/28/18 09:42 Dose: 0.4 mg - Labs Labs: 09/28/18 07:51 09/28/18 07:51 PT 13.4 SECONDS (9.7-12.2) H 09/21/18 06:21 INR 1.2 09/21/18 06:21 APTT 32 SECONDS (21-34) 09/21/18 06:21 Assessment and Plan - Assessment and Plan (Free Text) Assessment: 53 year old s/p laparoscopic cholecystectomy, seen and examined. Alert and orientedx3, tolerating food, no vomiting. Discussed with DR Jacinto, plan to discharge home today. Noticed with 2 plus bilateral leg edema, lasix 40 ivp given. Will discharge home on lasix and potassiumx4 days and advised to follow up in the office in 1 week for blood works.
--- NOTE | 2018-09-29 05:38 | OP ---
PROCEDURE DATE: 09/24/2018 PROCEDURE: Laparoscopic cholecystectomy. SURGEON: Charly Spencer MD MASTER MECHANIC: Christo Gambino DO, PGY1 ANESTHESIA: General. PREOPERATIVE DIAGNOSIS: Acute cholecystitis. POSTOPERATIVE DIAGNOSIS: Acute cholecystitis. INDICATIONS: This is a 53-year-old male with a past medical history of cardiac stent and cardiac bypass, presenting with right upper quadrant pain, nausea, and vomiting and was found on workup to have acute cholecystitis. The patient's cardiac risks were verified prior to procedure. Cholecystectomy indicated and recommended at this time with the patient medically optimized and cleared for surgery by primary and consulting providers. The risks, benefits, and surgery rationale were explained. Informed consent was obtained with nurse at bedside as witnessed. DESCRIPTION OF PROCEDURE: The patient was taken to the operating room and placed on the table in a supine with the left arm tucked in. Time-out was performed to verify correct patient, procedure, site, and additional clinical information prior to beginning the procedure. The patient's current antibiotics continued preoperatively. General anesthesia was initiated, and the patient was intubated. The patient was then prepped and draped in a sterile fashion. A periumbilical incision was then made, and a Veress needle was inserted. Proper position was confirmed. The abdomen was inflated with CO2 to a pressure of 15 to achieve pneumoperitoneum. The patient tolerated intubation well. A 12-mm trocar was then inserted at the umbilicus. A laparoscope was inserted under direct vision, and the abdomen was inspected to ensure no injuries occurred with the initial port placement. Additional ports were placed as follows: A 5-mm subxiphoid port and a 5-mm port along the right subcostal margin along with local anesthetic. Inspection of the gallbladder showed the gallbladder adhesed to the peritoneum anteriorly with overlying omentum and inflammation noted. A decision was made to insert an additional 5-mm port along the right subcostal margin along with local anesthetic. The table was placed in a reverse Trendelenburg with the right side up. Omental attachments to the gallbladder were taken down gently. Immediate purulent fluid began draining from the gallbladder site. A needle was inserted through the 5-mm port, and gallbladder was subsequently decompressed. Cultures were taken and sent for analysis. Additional purulent fluid was suctioned. Dissection of the gallbladder with difficulty showed chronic inflammatory changes and fibrotic tissue. Gallbladder fundus was then grasped and retracted cephalad over the dome of the liver. Adhesions between the gallbladder and omentum and duodenum were carefully taken down. Dissection was done to expose Calot's triangle. Peritoneum overlying the infundibulum was incised and stripped inferiorly. Then, the posterior peritoneum was dissected. The cystic duct and cystic artery were identified and dissected circumferentially until the critical view of safety obtained. The cystic duct and artery were then doubly clipped and divided. Gallbladder was dissected off the liver bed with electrocautery. Hemostasis was achieved. There was no leakage of bile from the cystic duct stump. Gallbladder was placed in an EndoCatch retrieval bag and removed through the umbilical incision. Specimen sent to Pathology. Thorough irrigation was performed. Ports were removed under direct supervision with no bleeding noted at trochar sites, and the abdomen was deflated. A 0-Vicryl was used to close the fascia at the umbilical port site. The skin of all incisions were reapproximated with a subcuticular 4-0 Monocryl and Dermabond. Operative field was cleaned and dried. Island dressings were applied. No intraoperative complications encountered. All instrument and sponge counts were correct. The patient was extubated in the OR and transferred to PICU in stable condition. Christo Gambino D.O. Charly Spencer MD
--- NOTE | 2018-10-02 13:44 | DS ---
HISTORY OF PRESENT ILLNESS: The patient came in to the emergency room on 09/22/2018, complaining of abdominal pain, recurrent, on and off for 10 days and has been getting worse. She started vomiting and having fever. Her temperature was 99 on arrival, her pulse 96, her blood pressure 118/71. Her lab showed her sugar 173, her white count was high at 16.2, and her sugar came up to 310. So, the patient was in acute abdominal pain and the right upper quadrant was tender. She was in cholecystitis and she is status post valve replacement and has coronary artery disease. She was seen by Cardiology to be cleared in case if she needs surgery. She and started on antibiotics. The fever improved. She was seen by Dr. Spencer for Surgery and she had a purulent gallbladder with extensive fibrosis and it was removed by laparoscopic cholecystectomy on 09/24/2018. She also was followed up until she was feeling better, then she was able to eat and get out of bed and resume her medications. Her white count was still high, so she was still on antibiotics IV until she was discharged. She was discharged on 09/28/2018 when the surgeon cleared her and will follow up in the office. Her vitals were okay. Her temperature came down. She was able to eat and go to the bathroom. Her white count came down to 16 and she was discharged to continue on p.o. medications at home and to see Dr. Spencer and she will follow up by her imaging. FINAL DIAGNOSES: Acute cholecystitis, cholecystectomy for infected gallbladder, anemia, and she has also wound infection Klebsiella. She was discharged to continue on her antibiotics and medications. She will be followed up by her MD and that was done on 09/28/2018. Prescriptions given to the patient and to continue her sugar control. Karis Jacinto MD
== END 2018-09-28 16:11 | disposition home or self-care (01) | DRG 419 ==
LOC: C.ER 04:37 → C.3T 13:54
PROVIDERS: ADMIT Internal Medicine; ATTEND Internal Medicine
PROC: 0FT44ZZ Resection of Gallbladder, Percutaneous Endoscopic Approach (ICD-10-PCS; principal; 2018-09-24 13:00)
DX: K80.00 Calculus of gallbladder with acute cholecystitis without obstruction (principal); K82.A1 Gangrene of gallbladder in cholecystitis; I10 Essential (primary) hypertension; E78.5 Hyperlipidemia, unspecified; E11.51 Type 2 diabetes mellitus with diabetic peripheral angiopathy without gangrene; E78.00 Pure hypercholesterolemia, unspecified; B96.1 Klebsiella pneumoniae [K. pneumoniae] as the cause of diseases classified elsewhere; I25.118 Atherosclerotic heart disease of native coronary artery with other forms of angina pectoris; Z79.4 Long term (current) use of insulin; Z95.1 Presence of aortocoronary bypass graft; Z95.828 Presence of other vascular implants and grafts; Z95.2 Presence of prosthetic heart valve; D72.829 Elevated white blood cell count, unspecified